=== PATIENT | male | born 1945 | race Caucasian/White ===

== ENCOUNTER 2025-03-06 10:00 | Outpatient (REF) | payer MEDICARE, SELFPAY ==
--- OUTSIDE RECORDS SUMMARY | 2024-10-08 07:00 | XMS_ITS | Encounter Summary ---
Author Name [facility] Organization [facility] Address [address] [place] [id number] Care Team Providers Care Advertising Dispatch Clerks Supervisor Name Role Phone LUCILA WADE Primary Care Provider Unavailabl e Insurance Providers: All historical and current Section Date Range: From patient's date of to the date document was created. This section includes the names of all active insurance providers for the patient. Insurance Provider Type of Coverage Plan Name Start of Policy Coverage End of Policy Coverage Group Number Member ID Insurance Provider's Telephone Number Policy Fang's Name Patient's Relationship to Policy Fang [facility] [place] M[facility] (WNR) MEDICARE ADVANTAGE MCR ([facility]) December 25, 2011 [id number] CARLA,DA VID PATIENT [employer] [place] [facility] (WNR) MEDICARE ADVANTAGE MCR ([facility]) December 25, 2011 [id number] CARLA,DA VID PATIENT MEDICARE ([facility]) MEDICARE () PART B December 25, 2011 PART B [id number] CARLA,DA VID PATIENT MEDICARE ([facility]) MEDICARE () PART A Apr 26, 2009 PART A [id number] [phone] CARLA,DA VID PATIENT MEDICARE PART D ([facility]) MEDICARE () PART D December 25, 2011 PART D [id number] JORGE AGUIRRE PATIENT MEDICARE PART D (WNR) PRESCRIPT ION PART D December 25, 2011 PART D [id number] JORGE AGUIRRE PATIENT Selected Encounter This section includes the information on record at [facility] for the Encounter. Date/Time Encounter Type Encounter Description Reason Provider Source Oct 08, 2024 11:00 AM OFFICE O/P EST HI 40 MIN PRIMARY CARE/MEDICINE ICD-10-CM I48.0 Paroxysmal atrial fibrillation NELIDA BRICENO Encounter Template Text not used by [facility] Assessments - Encounter Diagnoses This section includes the primary and secondary diagnoses documented for the Encounter. Date/Time Primary/Secondary Diagnosis Diagnosis Name Provider Source Oct 08, 2024 12:03 PM PRIMARY Paroxysmal atrial fibrillation NELIDA BRICENO Oct 08, 2024 12:03 PM SECONDARY Heart failure, unspecified NELIDA BRICENO Oct 08, 2024 12:03 PM SECONDARY Type 2 diabetes mellitus without complications NELIDA BRICENO Plan of Treatment: Future Appointments (+ 6 months) and Future Tests (+/- 45 days) The Plan of Treatment section includes future care activities for the patient from all [facility] treatmentfacilities. This section includes future appointments and future orders which are active, pending or scheduled. Future Appointments This section includes appointments that were scheduled to occur 6 months from the date of the Encounter, up to a maximum of 20 appointments. The data comes from all [place] treatment facilities. Appointment Date/Time Appointment Type Appointme nt Facility Name Nov 24, 2024 12:00 PM AMBULATORY PSYCHIATRY [facility] Dec 11, 2024 09:00 AM AMBULATORY PSYCHIATRY [facility] January 05, 2025 11:00 AM AMBULATORY PSYCHIATRY [facility] January 05, 2025 03:00 PM AMBULATORY PSYCHIATRY [facility] January 12, 2025 09:00 AM AMBULATORY PSYCHIATRY [facility] Feb 09, 2025 09:30 AM AMBULATORY PSYCHIATRY [facility] Feb 22, 2025 10:00 AM AMBULATORY - MEDICINE [facility] Mar 16, 2025 09:30 AM AMBULATORY PSYCHIATRY [facility] Lab Results: +/- 30 days of the encounter This section includes the Chemistry and Hematology Lab Results on record with [facility] for the patient. Radiology Reports and Pathology Reports are provided separately, in subsequent sections. Lab Results This section contains the Chemistry/Hematology Results that were resulted 30 days before or 30 daysafter the date of the Encounter. Date/Time Source Result Type Result - Unit Interpretation Reference Range Specimen Type Comment Oct 08, 2024 02:21 PM [facility] MICROALBUMIN CREATININE RATIO PANEL URINE Specimen Type: URINE No comment entered. Ordering Provider: NELIDA BRICENO Report Released Date/Time: Oct 08, 2024 11:53 AM Reporting [facility] [address] [address] Performing Lab: [facility] [address] [address] MICROALBUMIN/CREATININE RATIO 8.5 mg/g 0 -29.9 MICROALBUMIN,QUANTITATIVE 0.8 mg/dL RR U NAVAIL CREATININE URINE 94.27 mg/dL Oct 08, 2024 01:45 PM [facility] PT & INR (COUMADIN) PLASMA Specimen Ty pe: PLASMA No comment entered. Ordering Provider: NELIDA BRICENO Report Released Date/Time: Oct 08, 2024 11:33 AM Reporting Lab: [facility] [address] Performing Lab: [facility] [address] INR 2.2 PROTIME 23.5 s H 10.0-13.1 Oct 08, 2024 01:45 PM [facility] CBC BLOOD Sp ecimen Type: BLOOD No comment entered. Ordering Provider: NELIDA BRICENO Report Released Date/Time: Oct 08, 2024 11:33 AM Reporting Lab: [facility] [phone] Performing Lab: [facility] [phone] WBC 10.16 10*3/uL 4.50-11.00 RBC 4.70 10*6/uL 4.23-5.66 HGB 14.3 g/dL 12.8-17 HCT 43.4 39.2-50.4 MCV 92.3 fL 82-99 MCHC 32.9 g/dL 30.8-35.1 PLT 252 10*3/uL 140-360 RDW-CV 12.7 12.0-16.0 MCH 30.4 pg 26.2-32.6 Oct 08, 2024 01:45 PM [facility] CREATININE (eGFR 2020) SERUM Specimen Type: SERUM No comment entered. Ordering Provider: NELIDA BRICENO Report Released Date/Time: Oct 08, 2024 11:33 AM Reporting Lab: [address] [phone] Performing Lab: [address] [address] CREATININE, Serum 0.96 mg/dL 0.50-1.40 eGFR(CKD-EPI 2020) 79 mL/min >60 Oct 08, 2024 01:45 PM [facility] LIVER FUNCTION SERUM Specimen Type: SERUM No comment entered. Ordering Provider: NELIDA BRICENO Report Released Date/Time: Oct 08, 2024 11:33 AM Reporting Lab: [address] [address] Performing Lab: [address] [address] PROTEIN,TOTAL 6.9 g/dL 6.0-8.3 ALBUMIN 4.0 g/dL 3.5-5.0 ALKALINE PHOSPHATASE 80 U/L 40-150 AST 24 U/L 5-34 ALT 27 U/L BILIRUBIN, TOTAL 0.4 mg/dL 0.2-1.2 Vital Signs: All taken on the encounter date This section contains inpatient and outpatient Vital Signs collected on the date of the Encounter. Date/Time Temperature Pulse Blood Pressure Respiratory Rate SP02 Pain Height Weight Body Mass Index Source Oct 08, 2024 11:14 AM 97.5 80 119/81 18 95 70 196 28 [facility] Advance Directives: All historical and current Section Date Range: From patient's date of to the date document was created. This section includes ALL of a patient's completed or amended [place] Advance and Rescinded Directives. The entries below indicate that a directive exists for the patient, but an actual copy is not included with this document. The data comes from all [place] facilities. Date Advance Directives Provider Source Sep 18, 2024 ADVANCE DIRECTIVE TATI SAINI Encounter Notes: All associated encounter notes This section contains the clinical notes associated to the Encounter. Date/Time Encounter Note(s) Provider Source Oct 08, 2024 11:17 AM PREVENTIVE MEDICIN E NURSING NOTE: LOCAL TITLE: CLINICAL REMINDERS/NURSING STANDARD TITLE: PREVENTIVE MEDICINE NURSING NOTE DATE OF NOTE: OCT 08, 2024@11:17 ENTRY DATE: OCT 08, 2024@11:17:09 AUTHOR: BRUNILDA BA EXP COSIGNER: URGENCY: STATUS: COMPLETED Pneumococcal Conjugate Vaccine (PCV15/PCV20): The patient may have been vaccinated in the past but written documentation of vaccination is not available today. Patient instructed to obtain a written record of the prior vaccine and bring it to the next appointment. Influenza Immunization: Deferral / Refusal The patient declines to receive the recommended dose of seasonal influenza vaccine. Immunization: INFLUENZA, UNSPECIFIED FORMULATION Refusal Reason: PATIENT DECISION Patient refuses all immunization(s) in the FLU group Date Documented: 10/08/24 11:17 Herpes Zoster (Shingles) Vaccine: The patient declines to receive the recommended dose of zoster (shingles) vaccine. Immunization: ZOSTER RECOMBINANT Refusal Reason: PATIENT DECISION Patient refuses all immunization(s) in the ZOSTER group Date Documented: 10/08/24 11:18 Sexual Orientation: The patient thinks of their sexual orientation as: Reminder deferred for this visit. Tdap Immunization: The patient may have been vaccinated in the past but written documentation of vaccination is not available today. Patient instructed to obtain a written record of the prior vaccine and bring it to the next appointment. Eye Care At-Risk Screen : Patient identified to be at risk for the following eye condition(s): DIABETIC RETINOPATHY: Diabetes Diagnosis Information: Problem Diagnosis: 10/08/2024 [id number] (SNOMED CT) Type 2 diabetes mellitus Date Entered: 07/31/2019; Date Last Modified: 10/08/2024 Status: ACTIVE; Priority: UNDEFINED Prov. Narr. - Type 2 diabetes mellitus Action: No Referral Ordered: The patient declined/refused referral for Tele-Eye screening and Eye Clinic appointment. Comment: Its been a few years, offerd [facility] [employer] phone # RHS Screen: RHS Screen Environmental Check Screening was not completed at this time due to: Another adult present. Rsv vaccine not avaible at this time. /ghulam/ BRUNILDA BA LPN LICENSED PRACTICAL NURSE Signed: 10/08/2024 11:21 BRUNILDA BA [facility] Oct 08, 2024 09:45 AM PHYSICIAN EDILMA [place] NOTE: LOCAL TITLE: PA NOTE STANDARD TITLE: PHYSICIAN MANAGER QUALITY IMPROVEMENT NOTE DATE OF NOTE: OCT 08, 2024@09:45 ENTRY DATE: OCT 08, 2024@09:45:13 AUTHOR: NELIDA BRICENO COSIGNER: URGENCY: STATUS: COMPLETED PA NOTE Has ADDENDA S - 79 y/o M Allergy: NKAM MEDS: see below CC: new pt to me initial eval HPI: see Problem List PMH: neg CAD/AMI +A Fib 9and intermit flutter) neg HTN ?? TAA +VIRGINIE (no need for cpap) neg PVD or PAD neg COPD neg Asthma neg Hepatic Disorders +Tenorio's neg Renal Disorders neg CVA/TIA neg Seizures neg Chronic Coagulopathy neg PUD, UGI Bleed neg Anemia, Excess Bleeding, Easy Bruising neg Blood Transfusions +DM neg Thyroid Disorders +BPH any Signif Infectious Diseases? No like TB/HIV/HEP B or C neg OA never CA of any kind PSH: see Problem list ROS: denies fever, night sweats denies unintended changes WT/appetite denies new fatigue denies new chest pain denies new dyspnea/SOB denies new mental staus changes (or TIA Sx) denies ABD pain denies N/V/D denies chronic or bloody diarrhea denies (chronic) constipation denies LUTS denies melena, hematochezia denies new skin lesions or rashes FH: non-contributory Mil Hx: [employer], [place] 1964- 1967 MOS - Missle [employer] - No WIA - Never TBI - No [place]: retired; was self-employed and owned own business SH: O - coop A&Ox3 NAD W-N/H/D VS: Stable HEENT: Eyes - PERRL, anicteric OU Ears - EAC clear AU TM clear AU Oropharynx - no petechiae, uvula midline NECK: no adeno no bruits PUL: Resp full, reg, unlabored; CTA B/L COR: RRR, no M ABD: no distention no bruits no tenderness no mass/megaly RECTAL: defer EXT: no LLE or calf tenderness FEET: no cutaneous lesions dist neuro vascu intact INTEG: NL texture/turgor NAILS: no clubbing no spooning LABS: not done yet A/P - 1) Hypertension - 120/82 2) C/V Stable - never KS 3) A FIB - HR 100 Bouts of Flutter as Well 4) 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) - on Xarelto, 20 MG/day (Anti-Coag Consult Done) NOT ON ASA - on Metoprol SUCC, 100 MG/day - on Disopyramide 100 MG/TID (Non-Form Consult Done) - still sees [facility] Regularly (at [facility]) as of OCT 20 - Third Ablation Planned NOV 17 via Private Card[facility] 5) Neuro Stable - never CVA/TIA 6) Hypercholesterolemia - on Lipitor, 20 MG/day 7) DM II - Outside A1C's Average in the 6's - on Metformin XR (500 MG/Once Day) - foot, eye care - diet, wt 6) VIRGINIE (just snores) - no need for CPAP 6) Coagulopathy - No 7) Fall Risk: No 8) BPH (nocturia x 2) - on Flomax 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 YES: The patient has been taking medications as documented in the EMLR. Essential Medication List for Review used to complete this medication reconciliation. INCLUDED IN THIS LIST: Alphabetical list of active outpatient prescriptions dispensed from this [facility] (local) and dispensed from another [facility] or DoD facility (remote) as well as inpatient orders (local, pending and active), local clinic medications, locally documented non-VA medications, and local prescriptions that have or been discontinued in the past 90 days. - All changes in medications, including all non-VA/Herbal/OTC medications were entered into CPRS. Changes: nt - If there were any medications the patient should no longer take, they were discontinued. - The patient/caregiver was instructed to update this list, discard old lists, and take this list to the next appointment, whether with a VA or non-VA provider. PAVE Foot Check: A complete foot check was completed at this encounter. VISUAL INSPECTION: Includes inspection for skin breaks, deformity, erythema, trauma, pallor on elevation, dependent rubor, nail deformities, extensive callus and pitting edema. Visual exam results: Normal Comment: nt PEDAL PULSES: Includes palpation of dorsalis and posterior tibial pulses and signs/symptoms of vascular compromise like pain, pallor, parasthesia or paralysis. Present (even if diminished) Comment: nt SENSORY CHECK: Includes 10 gram Monofilament (Austin-Deana) test of sensation. Intact (Greater than or equal to 80% of sites checked) Abnormal (Less than 80% of sites checked): Intact Comment: nt LOW-RISK: LOW RISK INFORMATION PROVIDED: 1. Advised patient not to walk barefoot. 2. Explained the importance of daily foot checks for changes. 3. Stressed the importance of daily foot hygiene, including bathing and complete drying. Hemoglobin A1C: [place] had HBA1C result from another health care site (results required). Date: July, ? Exact date is unknown Location: Outside Healthcare Provider Results: approx month; 6.2 Eye Care At-Risk Eval (Provider) : Patient identified to be at risk for the following eye condition(s): DIABETIC RETINOPATHY: Diabetes Diagnosis Information: Problem Diagnosis: 10/08/2024 [id number] (SNOMED CT) Type 2 diabetes mellitus Date Entered: 07/31/2019; Date Last Modified: 10/08/2024 Status: ACTIVE; Priority: UNDEFINED Prov. Narr. - Type 2 diabetes mellitus Provider educated patient on potential risk of permanent vision loss and recommendation to obtain eye care assessment. Patient verbalized understanding and No Referral Ordered: Eye exam completed elsewhere by an [employer] Ticket Checker or Supervisor Dry Cell Assembly Diabetic retinal exam result: Negative for Retinopathy Date: July, ? Exact date is unknown Location: Outside Healthcare Provider Comment: appro,month; sees Ophth via [facility] in [place] Diabetes: Kidney Health Evaluation: Last eGFR: EGFR No data available for: eGFR(CKD-EPI 2020) eGFR Last uACR: No uACR found within the past year eGFR and uACR (estimated Glomerular Filtration Rate and Urine Albumin-Creatinine Ratio)* Serum or plasma creatinine, quantitative urine creatinine and quantitative urine albumin lab tests were ordered. /ghulam/ NELIDA BRICENO PA-C STAFF PHYSICIAN MANAGER QUALITY IMPROVEMENT Signed: 10/08/2024 12:03 10/08/2024 ADDENDUM STATUS: UNSIGNED You may not VIEW this UNSIGNED Addendum. NELIDA BRICENO
--- NOTE | ~2025-03-06 | CT_ITS ---
CLINICAL HISTORY: MILD COGNITIVE IMPAREMENT CT of the head without intravenous contrast Comparison: None Findings: The ventricles and sulci are prominent, consistent with generalized cerebral parenchymal volume loss. The ventricles are symmetric and the basilar cisterns are intact. Mild periventricular, deep and subcortical white matter hypodensities are nonspecific but statistically reflect the sequela of chronic small vessel ischemic change. No intracranial hemorrhage, extra-axial fluid collection, midline shift or mass-effect is evident. No evidence of acute large vessel or territorial ischemia. Brainstem and cerebellum unremarkable. Vascular calcifications indicate intracranial atherosclerosis. The imaged portion of the paranasal sinuses are clear. No mastoid effusions are demonstrated. The orbital contents are unremarkable. Calvarium is intact. Impression: 1. No CT evidence of acute intracranial abnormality. 2. Cerebral volume loss, intracranial atherosclerotic disease and mild sequela of chronic small vessel ischemic disease. This document has been electronically signed by: Abrahan Masterson MD on 03/08/2025 10:04:44
--- OUTSIDE RECORDS SUMMARY | 2025-03-06 10:05 | XMS_ITS ---
Author Name [facility] Organization Unknown Care Team Organization Name Specialty Phone Email Start Date End Da te [facility] 09/17/2023
--- OUTSIDE RECORDS SUMMARY | 2025-03-06 10:06 | XMS_ITS | Clinical Summary ---
Author Organization [address] [facility] Address [address] [place] [address] Phone Care Team Providers Care Commercial Producer Name Role Phone Rickie Bautista MD Primary Care Provider Medications rivaroxaban (Xarelto) 20 mg tablet Take 20 mg by mouth daily. 01/10/20 24 Active atorvastatin (LIPITOR) 20 mg tablet Take 1 tablet (20 mg total) by mouth 1 (one) time each day. 90 tablet 1 10/23/19 25 Active omeprazole (PriLOSEC) [address] capsule Take 1 capsule (20 mg total) by mouth 1 (one) time each day. 90 capsule 1 10/23/19 25 Active tamsulosin (FLOMAX) 0.4 mg 24 hr capsule Take 2 capsules (0.8 mg total) by mouth at bedtime. Active traZODone (DESYREL) 50 mg tablet Take 1 tablet (50 mg total) by mouth at bedtime. 30 tablet 2 12/11/19 25 Active LORazepam (ATIVAN) 0.5 mg tablet Take 1 tablet (0.5 mg total) by mouth 1 (one) time each day if needed for anxiety (iNSOMNIA). Not more than 1 tablet/day Max Daily Amount: 0.5 mg 14 tablet 12/31/19 25 Active metFORMIN (GLUCOPHAGE) 500 mg tablet Take 1 tablet (500 mg total) by mouth 1 (one) time each day with breakfast. Active metoprolol succinate (TOPROL-XL) 100 mg 24 hr tablet Take 1 tablet (100 mg total) by mouth 1 (one) time each day. Do not crush or chew. Active mirtazapine (REMERON) 7.5 mg tablet Take 1 tablet (7.5 mg total) by mouth at bedtime. 90 each 1 01/15/20 Active amiodarone (PACERONE) 200 mg tablet Take 1 tablet (200 mg total) by mouth 1 (one) time each day. 90 each 01/30/20 Active rOPINIRole (REQUIP) 0.5 mg tablet Take 1 tablet (0.5 mg total) by mouth at bedtime. 90 each 02/06/20 Active rOPINIRole (REQUIP) 0.25 mg tablet Take 1 tablet (0.25 mg total) by mouth See administration instructions. 1 tab at night for the first one week then 2 tab at night 53 each 01/14/20 25 2024 Discontinued Active Problems Problem Noted Date Diagnosed Date Restless leg syndrome 01/13/2025 Insomnia 12/10/2024 Cognitive impairment 12/10/2024 Anxiety and depression 12/10/2024 Migraine without aura and wi thout status migrainosus, not intractable 12/10/2024 Bradycardia 12/10/2024 Thoracic aortic aneurysm (TAA) ([facility] V24) 07/2024 Typical atrial flutter ([facility] V24, CMS/HCC V28 ) 08/06/2024 ICD (implantable cardioverter-defibrillator) in place 08/06/2024 Overview (08/06/2024): Biotronik single-chamber device placed in 2017 for primary prevention. RV lead with A sense capability. 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 Euvolemic on exam. Not requiring any diuretic. But does follow a low-sodium diet. 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 Date 11/18/2017. SE 64 % SM 72 %; spent 14 % of the study in REM. CPAP @ 16 -> RDI 1.6 (AHI 1.6), Central apneas 2; Obstructive apneas 0; Mixed apneas 0; hypopneas 0; RERAs 0; and, average oxygen saturation was 95%. For the entire study, PLMs ~53. Hypertrophic cardiomegaly 07/27/2016 Overview (07/10/2024): HOCM with septal thickness of 14 to 15 mm currently on negative inotropes with metoprolol and disopyramide. Resting heart rate in the [address] b[address] range[address] ICD in place. Last Assessment & Plan: Doing well in general with no signs of outflow tract obstruction. No ventricular arrhythmias and no atrial arrhythmias. Tolerating negative inotropic agents well. Echocardiogram last done in late 2022. No need to repeat this year. Will continue his healthy lifestyle and negative inotropic medications. Persistent atrial fibrillation (CMS/HCC V24, CMS /HCC V28) 04/27/2015 Overview (08/06/2024): Stage 3D Persistent atrial fibrillation: Briefly on amiodarone with ECV. Pulmonary vein isolation in March 2018 and has had minimal atrial fibrillation since. He did have an episode in 2018 that required a cardioversion and he went back on Xarelto. He has a second ablation in August 2019 -confirmed isolation of all 4 pulmonary veins, linear left atrial ablation with posterior wall isolation and mitral and septal isthmus lines completed. Persistent AF 08/14/2021 at midnight, pt aware of elevated HR but no significant SOB, decline in activity tolerance - event questionably precipitated by shoveling heavy snow, in setting of HCM will continue to pursue rhythm control. ECV - resumed Norpace. 07/2024 - recurrence of Aflutter - scheduled for ablation 09/2024 Colon polyp 03/01/2014 Overview (07/10/2024): Tubular adenoma Sleep disorder 12/21/2013 Ptosis of both eyelids 01/27/2013 Mixed hyperlipidemia 02/13/2012 Overview (07/10/2024): Last Assessment & Plan: Excellent lipid profile on atorvastatin. We talked about taking Co-Q10 which she asked about and I thought would be fine. Continue healthy diet Encounters Date Type Department Care Team Description 02/22/2025 4:30 PM EDT Ancillary Procedure [facility] [address] [facility] [address] [place] [address] 01/13/2025 10:00 AM EDT Office Visit Adult [address] [phone] Rickie Bautista MD Numbness of feet (Primary Dx); Restless leg syndrome; Insomnia, unspecified type; Anxiety and depression; Prediabetes 01/12/2025 Nurse Triage [address] [phone] Rickie Bautista MD 01/07/2025 4:00 PM EDT Office Visit [address] [phone] Virgil Britt PA Mid back pain (Primary Dx); Skin lesion 01/07/2025 Telephone Adult [address] [phone] Rickie Bautista MD Referral 01/07/2025 Telephone Adult [address] [phone] Rickie Bautista MD 12/31/2024 9:45 AM EDT Ancillary Procedure [facility]iology [facility] [address] [place] [address] 12/31/2024 Telephone [facility] [address] [place] [address] Shira Dong NP 12/10/2024 11:30 AM EDT Office Visit Adult Medicine [address] [address] Rickie Bautista MD Insomnia, unspecified type (Primary Dx); Anxiety and depression; Cognitive impairment; Migraine without aura and without status migrainosus, not intractable; Prediabetes; Bradycardia; Persistent atrial fibrillation (CMS/HCC V24, CMS/HCC V28) 12/09/2024 1:40 PM EDT Office Visit [facility] Cardiology [facility] [address] [place] [address] Shira Dong NP Persistent atrial fibrillation (CMS/HCC V24, CMS/HCC V28) (Primary Dx); Hypertrophic cardiomegaly from Last 3 Months Immunizations Name Administration Dates Next Due Influenza trivalent, 0.5mL ( Fluad) 65yo and older 06/08/2020,05/20/2019,05/13/2017 Influenza trivalent, 0.5mL, preservative free (Fluarix; FluLaval; Fluzone) ages 6mo and older (Afluria) 3 years and older 05/30/2015,05/15/2013,07/02/2012 Pneumococcal polysaccharide 23 valent (Pneumovax 23) 2yo and older 06/08/2010 Td Tetanus diptheria (Tdvax) 7yo and older 08/26 Zoster Live 12/19/2011 Surgical History Surgery Date Site/Laterality Comments CARDIAC DEFIBRILLATOR PLACEMENT PROCEDURE:CARDIAC DEFIBRILLATOR PLACEMENT OTHER SURGICAL HISTORY PROCEDURE: SHOULDER ARTHROSCOPY, DIAGNOSTIC; COMMENT: times 3, 2 on the right one on the left OTHER SURGICAL HISTORY 08/30/19 17 PROCEDURE: INSERTION SUBCUTANEOUS DEFIBRILLATOR ELECTRODE; COMMENT: Implantation of a single-chamber implantable cardoverter defibrillator under fluoroscopic guidance. ESOPHAGOGASTRODUODENOSCOPY 06/19/20 PROCEDURE: OK ESOPHAGOGASTRODUODENOSCOPY TRANSORAL DIAGNOSTIC; COMMENT: Short segment Tenorio's disease, small hiatal hernia repeat 3 years for surveillance ABLATION DONE ON 10/14/2024 AT [facility] CARDIOVERSION DONE ON 11/13/2024 AT [facility] W AOP INDICATIONS:Atrial fibrillation Medical History Medical History Date Comments Heart disease DX:Heart disease Cardiac pacemaker DX:Cardiac pac emaker Family history of valvular h eart disease DX:Family history of valvula r heart disease; COMMENT: brother with HOCM, pt had full workup in [place], negative Other and unspecified hyperlipidemia DX:Other and unspecified hyperlipidemia Idiopathic hypertrophic suba ortic stenosis (CMS/HCC V24, CMS/HCC V28) DX:Idiopathic hype rtrophic subaortic stenosis (HCC) Erectile dysfunction DX:Erectile dysfunction Elevated prostate specific a ntigen (PSA) DX:Elevated prostate specifi c antigen (PSA) DM (diabetes mellitus), type 2 with peripheral vascular complications (CMS/HCC V24, CMS/HCC V28) 01/25/2015 DX:DM (diabetes mellitus), type 2 with peripheral vascular complications (HCC) Insomnia 01/27/2013 DX:Insomnia Short-segment Tenorio's esophagus 06/26/2021 DX:Short-segment Tenorio's esophagus Hiatal hernia 06/26/2021 DX:Hiatal hernia Family History Medical History Relation Name Comments Heart disease Brother 1 CABG Father Heart disease Father CABG Mother Heart disease Mother Relation Name Status Comments Brother 1 Brother 2 (Age 45) [place] -- card iomyopathy Daughter Alive times 3, health y Father (Age 92) old age Maternal Grandfather Maternal Grandmother Mother (Age 88) Paternal Grandfather Paternal Grandmother Social History Tobacco Use Types Packs/Day Years Used Date Smoking Tobacco: Former Cigarettes Q uit: 08/26/1988 Smokeless Tobacco: Never Tobacco Cessation:Counseling Given: Not Answered Alcohol Use Standard Drinks/Week Comments Not Currently 1.7 (1 standard drink = 0.6 oz p ure alcohol) Housing Instability Answer Date Recorde d Are you worried that in the next 2 months you may not have stable housing? No 12/09/2024 Food Access & Nutrition Answer Date Rec orded Do you have access to a vari ety of food including fruits and vegetables? Yes 12/09/2024 Access to Healthcare Answer Date Record ed Within the last 3 months, ho w many times did you visit the emergency department for your medical care? 1 12/09/2024 Financial Risk Answer Date Recorded How hard is it for you to pa y for the very basics like food, housing, medical care, and air conditioning / heating? Not very hard 12/09/2024 Transportation Answer Date Recorded Has the lack of transportati on kept you from meetings, work, or from getting things needed for daily living? Not on file 12/09/2024 Has the lack of transportati on kept you from medical appointments or from getting medications? No 12/09/2024 Social Isolation Answer Date Recorded How often do you feel lonely or isolated from those around you? Sometimes 12/09/2024 Food Risk Answer Date Recorded Within the past 12 months we worried whether our food would run out before we got money to buy more. Never true 12/09/2024 Within the past 12 months th e food we bought just didn't last and we didn't have money to get more. Never true 12/09/2024 Dependent Care Answer Date Recorded Do you need help finding or paying for care for your loved ones. For example, early childhood special educator or elderly care for an older adult? No 12/09/2024 Education Answer Date Recorded Do you think completing more education or training, like finishing a GED, going to college, or learning a trade, would be helpful for you? No 12/09/2024 Employment and Income Answer Date Recor ded During the last four weeks, have you been actively looking for work? No 12/09/2024 Living Situation Answer Date Recorded What is your living situation? 0 12/09/2024 Sex and Gender Information Value Date Recorded Sex Assigned at Male 10/13/2024 8:19 AM EST Legal Sex Male 4:01 PM EST Gender Identity Male 10/13/2024 8:19 AM EST Sexual Orientation Straight 10/13/2024 8: 19 AM EST Obstetrics History Last Filed Vital Signs Vital Sign Reading Time Taken Comments Blood Pressure 138/72 01/13/2025 10:05 AM EDT Pulse 62 01/13/2025 10:05 AM EDT Temperature 36.4 C (97.6 F) 01/13/2025 10:05 AM EDT Respiratory Rate 14 01/13/2025 10:05 AM EDT Oxygen Saturation 98% 01/13/2025 10:05 AM EDT Inhaled Oxygen Concentration - - Weight 83.5 kg (184 lb) 01/13/2025 10:05 AM EDT Height 177.8 cm (5' 10 ) 01/13/2025 10:05 AM EDT Body Mass Index 26.4 01/13/2025 10:05 AM EDT Plan of Treatment Upcoming Encounters Date Type Department Care Team (Late st Contact Info) Description 03/25/2025 2:00 PM EDT Office Visit Gastroenterology - [place] [address] [place] [address] Mercedes Giles PA [address] [place] [address] 06/03/2025 10:30 AM EDT Ancillary Procedure [facility] [address] [place] [address] 06/07/2025 1:30 PM EDT Ancillary Procedure [facility] [address] [place] [address] Health Maintenance Due Date Last Done Comments Diabetes: Annual Foot Exam 1955 Pneumococcal Vaccine: 50+ Years (2 of 2 - PCV) 06/08/2011 06/08/2010 Zoster Vaccines (2 of 3) 02/13/2012 12/19/2011 RSV Immunization Adult Patients (1 - 1-dose 75+ series) 2019 DTaP,Tdap,and Td Vaccines (2 - Td or Tdap) 08/26/2021 08/26/2011 Medicare Annual Wellness Visit 08/04/2022 COVID-19 Vaccine (2 - season) 2024 12/01/2020 Diabetes: Annual Retina Eye Exam 12/15/2024 12/16/2023 Diabetes: Annual Urine Albumin-Creatinine Ratio (uACR) 02/09/2025 02/10/2024 Influenza Vaccine (#1) 2025 , 05/20/2019, 04/26/2019, Additional history exists Diabetes: Blood Sugar Control Test (HGBA1C) 05/12/2025 11/09/2024, 06/10/2024, 06/10/2024, Additional history exists Diabetes: Annual GFR (Glomerular Filtration Rate) 11/09/2025 11/09/2024, 10/13/2024, 02/10/2024, Additional history exists Hypertension/CHF/CAD Annual BMP Blood Test 11/09/2025 11/09/2024, 10/13/2024, 02/10/2024, Additional history exists Social Influencers of Health Screening 12/09/2025 12/09/2024 Depression Screening 12/10/2025 12/10/2024 Falls Risk Assessment 12/10/2025 12/10/2024 Cholesterol Screening (Lipid Panel) 02/09/2029 02/10/2024, 02/10/2024 HIB Vaccines Aged Out No longer eligi ble based on patient's age to complete this topic HPV Vaccines Aged Out No longer eligi ble based on patient's age to complete this topic Hepatitis A Vaccines Aged Out No long er eligible based on patient's age to complete this topic Hepatitis B Vaccines Aged Out No long er eligible based on patient's age to complete this topic IPV Vaccines Aged Out No longer eligi ble based on patient's age to complete this topic MMR Vaccines Aged Out No longer eligi ble based on patient's age to complete this topic Meningococcal ACWY Vaccine Aged Out N o longer eligible based on patient's age to complete this topic Meningococcal B Vaccine Aged Out No l onger eligible based on patient's age to complete this topic RSV Immunization Patients Under 20 months Aged Out No longer eligible based on patient's age to complete this topic Varicella Vaccines Aged Out No longer eligible based on patient's age to complete this topic Medical Devices Implanted Type Area Director Of Land Device Identifier Shelf Expiration Date Model / Serial / Lot Device Clsbeatriz Thomasde Mvp 6-12f Fem Art - [id number] - [id number] Implanted:Qty: 2 on 10/14/2024 by Laz Santacruz MD at [facility] Vascular Closure Devices N/A: Groin [employer]- [employer]ARD[employer]A MED ITEMS 06/11/2026 [id number] / [id number] / Plug Fem Artery Closure Vascade Mvp Collagen Ster - [id number] - [id number] Implanted:Qty: 1 on 10/14/2024 by Laz Santacruz MD at [facility] Vascular Grafts N/A: Groin [employer]- [employer] MED ITEMS [id number] 06/17/2026 [id number] / [id number] / Procedures Procedure Name Priority Date/Time Associated Diagnosis Comments CARDIAC DEVICE CHECK- REMOTE- MURJ Routine 02/22/2025 4:29 PM EDT VITAMIN B12 Routine 01/15/2025 3:21 PM EDT Numbness of feet IRON AND TIBC Routine 01/15/2025 3:21 PM EDT Restless leg syndrome POC GLUCOSE Routine 01/13/2025 10:14 AM EDT Prediabetes CARDIAC DEVICE CHECK- REMOTE- MURJ Routine 12/31/2024 9:41 AM EDT ECG 12-LEAD Routine 12/09/2024 3:54 PM EDT Persistent atrial fibrillation (CMS/HCC V24, CMS/HCC V28) COMPREHENSIVE METABOLIC PANEL Routine 11/09/2024 10:06 AM EDT Persistent atrial fibrillation (CMS/HCC V24, CMS/HCC V28) HEMOGLOBIN A1C Routine 11/09/2024 10:06 AM EDT Prediabetes URINE ALBUMIN CREATININE RATIO Routine 02/10/2024 LIPID PANEL Routine 02/10/2024 DIABETES EYE EXAM Routine 12/16/2023 from Last 3 Months or Most Recently Relevant to Health Maintenance Results * Cardiac device check - Remote- MURJ (02/22/2025 4:29 PM EDT) Only the most recent of2 resultswithin the time period is included. Date Time Interrogation Session [id number] CV DEVICE CHECK Type Interrogation Session RemoteScheduled CV DEVICE CHECK Implantable Pulse Generator Director Of Land BIO CV DEVICE CHECK Implantable Pulse Generator Type ICD CV DEVICE CHECK Implantable Pulse Generator Model Iperia 7 VR-T DX CV DEVICE CHECK Implantable Pulse Generator Serial Number [id number] CV DEVICE CHECK Implantable Pulse Generator Implant Date [id number] CV DEVICE CHECK Battery Remaining Percentage 17.00 CV DEVICE CHECK Battery Voltage 2.960 CV D EVICE CHECK Battery JEWELRY JOBBER Trigger 2.850 CV DEVICE CHECK Battery Status Middle of Service CV DEVICE CHECK Capacitor Charge Time 12.300 CV DEVICE CHECK Valeriy Statistic RV Percent Paced 0.00 CV DEVICE CHECK Atrial Tachy Statistic AT/AF [place] Percent 0.00 CV DEVICE CHECK Lead Channel Sensing Intrinsic Amplitude 1.400 CV DEVICE CHECK Lead Channel Setting Sensing Sensitivity 1.00 CV DEVICE CHECK Lead Channel RA Pacing Threshold Date 2025-02-17 CV DEVICE CHECK Lead Channel Sensing Intrinsic Amplitude 15.000 CV DEVICE CHECK Lead Channel Setting Sensing Sensitivity 0.80 CV DEVICE CHECK Lead Channel Impedance Value 476 CV DEVICE CHECK Lead Channel RV Pacing Threshold Date 2025-02-17 CV DEVICE CHECK Lead Channel Setting Pacing Amplitude 2.500 CV DEVICE CHECK Lead Channel Setting Pacing Pulse Width 0.5 CV DEVICE CHECK Valeriy Setting Mode (NBG Code) VVI CV DEVICE CHECK Valeriy Setting Lower Rate Limit 40 CV DEVICE CHECK Therapy Statistic Recent Shocks Delivered 0 CV DEVICE CHECK Therapy Statistic Recent Shocks Aborted 0 CV DEVICE CHECK Therapy Statistic Recent ATP Delivered 0 CV DEVICE CHECK Shock Measured Impedance 77 CV DEVICE CHECK Zone Setting Type Category Zone_ATAF CV DEVICE CHECK Rate 140 CV DEVICE CHECK Zone Setting Status Monitor CV DEVICE CHECK Zone ID 7 CV DEVICE CHECK Zone Setting Type Category VF CV DEVICE CHECK Rate 200 CV DEVICE CHECK Therapies Burst,40.0J,40.0J, 40.0J x 6 CV DEVICE CHECK Zone Setting Status On CV DEVICE CHECK Zone ID 8 CV DEVICE CHECK Zone Setting Type Category VT CV DEVICE CHECK Rate 150 CV DEVICE CHECK Zone Setting Status Monitor CV DEVICE CHECK Zone ID 9 CV DEVICE CHECK Zone Setting Type Category VT CV DEVICE CHECK Zone Setting Status Inactive CV DEVICE CHECK Zone ID 10 CV DEVICE CHECK Date of Service 2025-03-02 CV DEVICE CHECK Anatomical Region Laterality Modality Device Interroga tion 02/17/2025 2:46 AM EDT Impressions 02/22/2025 7:37 AM EDT Normal Remote: No Events * Normal Device Function * Alerts or events: None * Battery: Battery is at 17%, * Sensing, impedance and thresholds reviewed * Programmed parameters reviewed * Presenting rhythm reviewed * Heart Rate Histograms reviewed * No significant changes noted Heart Failure Diagnostic: Stable * Heart failure diagnostics assessed through the device * Status: Stable * No overt HF present Narrative Procedure Note Laz Santacruz MD - 02/22/2025 IMPRESSION: Normal Remote: No Events * Normal Device Function * Alerts or events: None * Battery: Battery is at 17%, * Sensing, impedance and thresholds reviewed * Programmed parameters reviewed * Presenting rhythm reviewed * Heart Rate Histograms reviewed * No significant changes noted Heart Failure Diagnostic: Stable * Heart failure diagnostics assessed through the device * Status: Stable * No overt HF present us Laz Santacruz MD CV IMPLANTABLE CARDIAC DEVICE PROCEDURES Final Result * (ABNORMAL) Iron and TIBC (01/15/2025 3:21 PM EDT) Iron 65 50 - 160 mcg/dL LAB CHEMISTRY METHOD 01/15/2025 6:02 PM EDT [facility] TIBC 349 250 - 450 mcg/dL LAB CHEMISTRY METHOD 01/15/2025 6:02 PM EDT [facility] Iron Saturation 19(L) 20 - 50 % LAB CHEMISTRY METHOD 01/15/2025 6:02 PM EDT [facility] Blood Venous blood specimen / Unknown Venipuncture / Unknown 01/15/2025 3:21 PM EDT 01/15/2025 3:24 PM EDT us Rickie Bautista MD LAB BLOOD ORDERABLES Final Result [facility] [address] [place] [address], [place] [phone] * (ABNORMAL) Vitamin B12 (01/15/2025 3:21 PM EDT) [facility] Vitamin B-12 972(H) 250 - 900 pcg/mL LAB CHEMISTRY METHOD 01/15/2025 6:24 PM EDT [facility] Blood Venous blood specimen / Unknown Venipuncture / Unknown 01/15/2025 3:21 PM EDT 01/15/2025 3:24 PM EDT us Rickie Bautista MD LAB BLOOD ORDERABLES Final Result [facility] [address] [place] [address], [place] [phone] * (ABNORMAL) POC glucose manually resulted (01/13/2025 10:14 AM EDT) [facility] Glucose POC 115(A) 70 - 110 mg/dL Blood Capillary blood specimen / Unknown 01/13/2025 10:14 AM EDT us Rickie Bautista MD POINT OF CARE TEST ENTER/ED IT ORDERABLES Final Result * ECG 12 lead (12/09/2024 3:54 PM EDT) [facility] Ventricular Rate ECG 43 BPM GEMUSE Atrial Rate 43 BPM GEMUSE P-R Interval 198 ms GEMUSE QRS Duration 146 ms GEMUSE Q-T Interval 560 ms GEMUSE QTc 473 ms GEMUSE P Wave [place] 29 degrees GEMUSE R [place] 0 degrees GEMUSE T [place] 113 degrees GEMUSE ECG Interpretation Marked sinus bradycardia Left bundle branch block STTWA unchanged Confirmed by ASHUTOSH HILL ([id number]) on 12/13/2024 2:40:52 PM GEMUSE 12/09/2024 1:30 PM EDT 12/13/2024 2:40 PM EDT us Shira Dong NP ECG ORDERABLES Edited Resul t - Final GEMUSE * Hemoglobin A1c (11/09/2024 10:06 AM EDT) Pathologist [facility] Hemoglobin A1C 6.0 <6.5 % LAB CHEMISTRY METHOD 11/09/2024 2:15 PM EDT [facility] Mean Bld Glu Estim. 126 mg/dL LAB CHEMISTRY METHOD 11/09/2024 2:15 PM EDT [facility] Blood Venous blood specimen / Unknown Venipuncture / Unknown 11/09/2024 10:06 AM EDT 11/09/2024 10:06 AM EDT Rickie Bautista MD LAB BLOOD ORDERABLES Final Result Performing Organization Address [facility]/ZIP Co de Phone Number [facility] [address] [place] [address], * (ABNORMAL) Comprehensive metabolic panel (11/09/2024 10:06 AM EDT) [facility] Sodium 139 133 - 145 mmol/L LAB CHEMISTRY METHOD 11/09/2024 1:13 PM EDT [facility] Potassium 3.8 3.5 - 5.5 mmol/L LAB CHEMISTRY METHOD 11/09/2024 1:13 PM EDT [facility] Chloride 105 96 - 110 mmol/L LAB CHEMISTRY METHOD 11/09/2024 1:13 PM EDT [facility] CO2 28 21 - 32 mmol/L LAB CHEMISTRY METHOD 11/09/2024 1:13 PM EDT [facility] Anion Gap 6 3 - 11 LAB CHEMISTRY METHOD 11/09/2024 1:13 PM EDT [facility] Glucose 154(H) 70 - 100 mg/dL LAB CHEMISTRY METHOD 11/09/2024 1:13 PM EDT [facility] BUN 16 5 - 25 mg/dL LAB CHEMISTRY METHOD 11/09/2024 1:13 PM [facility] Creatinine 1.14 0.70 - 1.30 mg/dL LAB CHEMISTRY METHOD 11/09/2024 1:13 PM [facility] eGFR 65 >=60 mL/min/1. 73m2 LAB CHEMISTRY METHOD 11/09/2024 1:13 PM [facility] LAB Comment:Calculation based on the Chronic Kidney Disease Epidemiology Collaboration (CKD-EPI) equation refit without adjustment for race. BUN/Creatinine Ratio 14.0 LAB CHEMISTRY METHOD 11/09/2024 1:13 PM [facility] Calcium 9.7 8.5 - 10.5 mg/dL LAB CHEMISTRY METHOD 11/09/2024 1:13 PM [facility] AST (SGOT) 20 10 - 42 unit/L LAB CHEMISTRY METHOD 11/09/2024 1:13 PM [facility] ALT (SGPT) 33 10 - 60 unit/L LAB CHEMISTRY METHOD 11/09/2024 1:13 PM [facility] Alkaline Phosphatase 82 42 - 121 unit/L LAB CHEMISTRY METHOD 11/09/2024 1:13 PM [facility] Total Protein 7.1 6.0 - 8.0 g/dL LAB CHEMISTRY METHOD 11/09/2024 1:13 PM [facility] Albumin 4.0 3.2 - 5.0 g/dL LAB CHEMISTRY METHOD 11/09/2024 1:13 PM [facility] Total Bilirubin 0.9 0.0 - 1.4 mg/dL LAB CHEMISTRY METHOD 11/09/2024 1:13 PM [facility] Blood Venous blood specimen / Unknown Venipuncture / Unknown 11/09/2024 10:06 AM EDT 11/09/2024 10:06 AM EDT Shira Dong DATABASE DESIGN ANALYST LAB BLOOD ORDERABLES Final R esult [facility] [address] [place] [address], * HM Urine Albumin Creatinine Ratio (02/10/2024) Urine Albumin Creatinine Ratio abstracted Historical Provider HEALTH MAINTENANCE Final Result * Lipid panel (02/10/2024) Pathologist [facility] LDL/HDL Ratio 3 0 - 4 Triglycerides 94 0 - 150 mg/dL Cholesterol 112 0 - 200 mg/dL HDL 44 >=40 mg/dL LDL Cholesterol 50 0 - 100 mg/dL Blood Venous blood specimen / Unknown Historical Provider LAB BLOOD ORDERABLES Isabela l Result * Diabetes Eye Exam (12/16/2023) Pathologist [facility] Diabetes: Annual Retina Eye Exam abstracted Historical Provider HEALTH MAINTENANCE Final Result from Last 3 Months or Most Recently Relevant to [place] [id number] [employer] [id number] [place] [address] Advance Directives Documents on File Type Date Recorded Patient Paper Tube Machine Operator Expl anation Power of Senior Medical Billing Specialist 11/13/2024 11:38 AM [facility] PROXY * Full Code - Confirmed (Latest Code Status on File) Date Activated Date Inactivated Comments 11/09/2024 9:41 AM This code stat us was ascertained in the following way: Code status discussion: discussion with patient To update the patient's code status, place a code status order. Do not modify or discontinue any currently active code status orders. * Full Code - Default Date Activated Date Inactivated Comments 10/14/2024 8:20 AM 10/15/2024 4:50 AM This is orde r is used when code status has not been discussed with the patient, or code status is otherwise unknown/unconfirmed To update the patient's code status, place a code status order. Do not modify or discontinue any currently active code status orders. Care Teams Commercial Producer Relationship Specialty Start Date End Date Rickie Bautista MD [address] [place] [address] PCP - General Internal Medicine 12/29/21
--- OUTSIDE RECORDS SUMMARY | 2025-03-06 10:06 | XMS_ITS | Clinical Summary ---
Author Organization [facility] Address [address] [place] [address] Care Team Providers Care Asphalt Mixer Name Role Phone Rickie Bautista MD Primary Care Provider [phone] Allergies No known active allergies Medications Medication Sig Dispensed Refills Start Date End Date Status atorvastatin (LIPITOR) tablet 20 mg TAKE 1/2 TABLET BY MOUTH DAILY. 3 11/18/2018 Active disopyramide (NORPACE) 100 MG capsule Take 1 capsule (100 mg total) by mouth 3 (three) times a day. 3 09/11/2018 Active METOPROLOL TARTRATE PO Take 100 mg by mouth daily. 0 Active sildenafil (VIAGRA) 100 MG tablet Take 1 tablet (100 mg total) by mouth daily as needed. 0 Active rivaroxaban (XARELTO) 20 MG TABS tablet Take 1 tablet (20 mg total) by mouth every evening. 0 Active omeprazole (PriLOSEC) 20 MG capsule Take 1 capsule (20 mg total) by mouth daily. 0 Active tamsulosin (FLOMAX) 0.4 MG CAPS Take 1 capsule (0.4 mg total) by mouth daily. 0 Active metFORMIN (GLUCOPHAGE) tablet 500 mg Take 1 tablet (500 mg total) by mouth daily. 0 Active Active Problems Problem Noted Date Diagnosed Date Olecranon bursitis of right elbow 12/17/2018 Family History Medical History Relation Name Comments Heart disease Brother Heart disease Father Heart disease Mother Relation Name Status Comments Brother Father Mother Social History Tobacco Use Types Packs/Day Years Used Date Smoking Tobacco: Former Cigarettes Q uit: 1988 Smokeless Tobacco: Never Alcohol Use Standard Drinks/Week Comments No 0 (1 standard drink = 0.6 oz pur e alcohol) Sex and Gender Information Value Date Recorded Sex Assigned at Not on file Gender Identity Not on file Sexual Orientation Not on file Job Start Date Occupation Industry Not on file Not on file Not on file Last Filed Vital Signs Vital Sign Reading Time Taken Comments Blood Pressure - - Pulse - - Temperature - - Respiratory Rate - - Oxygen Saturation - - Inhaled Oxygen Concentration - - Weight 96.2 kg (212 lb) 12/17/2018 10:00 AM EDT Height 176.5 cm (5' 9.5 ) 12/17/2018 10:00 AM ED T Body Mass Index 30.86 12/17/2018 10:00 AM EDT Plan of Treatment Health Maintenance Due Date Last Done Comments Depression Screening 1956 Preventative Health Evaluation 1962 DTap / Tdap / Td (1 - Tdap) 1963 Shingrix-Zoster Vaccine (1 of 2) 1994 Fall Risk Assessment 2009 Pneumococcal Vaccine (2 of 2 - PCV) 06/08/2011 06/08/2010 RSV Adult > 60+ Yrs or (1 - 1-dose 75+ series) 2019 COVID-19 Vaccine (2 - season) 2024 12/01/2020 Influenza Vaccine (#1) 2025 , 05/20/2019, 04/26/2019, Additional history exists Hepatitis B Vaccines Aged Out No long er eligible based on patient's age to complete this topic RSV Ped < 20 months Aged Out No longe r eligible based on patient's age to complete this topic Care Teams Asphalt Mixer Relationship Specialty Start Date End Date Rickie Bautista MD [address] [place] [id number] PCP - General Hospitalist Medicine 09/18/23
== END 2025-03-06 10:01 | disposition home or self-care (01) ==
LOC: HO.CT 10:00
PROVIDERS: Visit Provider Internal Medicine
DX: G31.84 Mild cognitive impairment of uncertain or unknown etiology (principal)
CPT/HCPCS: 70450

== ENCOUNTER → 2025-03-06 10:17 | Outpatient (BNV) | payer MEDICARE, SELFPAY | PROVIDERS: Visit Provider Radiology Diagnostic Radiology | DX: G31.89 Other specified degenerative diseases of nervous system (principal); I67.2 Cerebral atherosclerosis | CPT/HCPCS: 70450 ==

== ENCOUNTER 2025-03-11 15:58 | Outpatient (AMB) | payer OTHER, SELFPAY ==
--- NOTE | 2025-03-11 16:09 | A.OFFVIS_ITS ---
Intake Visit Reasons: review CT scan Allergies No Known Allergies Allergy (Verified 03/09/25 10:19) Medication List - Last Reconciled 03/11/25 by Yakelin Yo MD atorvastatin 20 mg PO DAILY disopyramide phosphate 100 mg PO TID metformin ER 500 mg PO QAM metoprolol tartrate 25 mg PO BID PRN omeprazole 20 mg PO DAILY rivaroxaban (Xarelto) 20 mg PO DAILY sertraline 25 mg PO DAILY tamsulosin 0.8 mg PO QPM HPI Comments Details: 79 yo man with mild cognitive impiarment. (Initial seen in December of 2024: With atrial fibb, s/p defibrillator placement, was here for difficulty sleeping since October of 2024. His in Jun. He was also having issues with his prostate. He was waking up frequently but not usually to urinate. Memory was not good. Mood was not good. He did not have any pain. Appetite was good. Bowel function was good. He was unsteady and was shaking in his hands.) [facility] Medical History (Updated 03/11/25 @ 16:18 by Yakelin Yo MD) HLD (hyperlipidemia) Pre-diabetes A-fib Insomnia MCI (mild cognitive impairment) Migraine with aura Physical Exam Neuro Other: Mental Status: Alert and oriented to person, place, and time. Normal attention. Normal spontaneous speech, fluency, and comprehension. Is mini-mental status score today was 26. [place] was 23. Cranial Nerves: CN II: Visual ruiz full to confrontation, visual acuity intact. CN III, IV, : Pupils equal, round, reactive to light and accommodation. Extraocular movements are normal. CN V: Facial sensation is normal. CN VII: Facial movements symmetrical. CN VIII: Hearing intact to bedside conversation is normal. CN IX, X: Palate elevates symmetrically. CN XI: Shoulder shrug and head turn symmetrical. CN XII: Tongue midline without atrophy or fasciculations. Deep tendon reflexes are absent with mild diffuse atrophy in his legs and feet and some trophic skin changes. Plantars are flexor. Vibration sensation is decreased in feet. Extrapyramidal: Full facial expressions and blinking. No rigidity. Movements are appropriate with no tremor or abnormality. Speech: Normal; no dysarthria or tremor. Assessment & Plan Assessment & Plan (1) MCI (mild cognitive impairment): Comment[place] [facility] [place] WNL Code(s): G31.84 - Mild cognitive impairment of uncertain or unknown etiology Category: Medical (2) Peripheral neuropathy: Code(s): G62.9 - Polyneuropathy, unspecified Category: Medical Qualifiers: Peripheral neuropathy type: polyneuropathy, unspecified Qualified Code(s): G62.9 - Polyneuropathy, unspecified Plan Impression: a: Mild cognitive impairment with no significant abnormality on head CT. There is fair possiblity of Alzheimer disease b: Peripheral neuropathy with prediabetic condition Rec: 1. Neuropsychological eval 2. Abeta/tau serum test for cerebral amyloid 3. EMG/NCS to classify and grade neuropathy 4. B12 and TSH level Orders: Orders NE nerve conduction velocity Today G62.9 - Polyneuropathy, unspecified NE electromyogram (EMG) Today G62.9 - Polyneuropathy, unspecified Vitamin B12 and Folate Today G31.84 - Mild cognitive impairment of uncertain or unknown etiology Thyroid Stimulating Hormone Today G31.84 - Mild cognitive impairment of uncertain or unknown etiology ABeta 42/40 p-tau 217 Eval Today G31.84 - Mild cognitive impairment of uncertain or unknown etiology Referrals Neuropsychiatry Referral G31.84 - Mild cognitive impairment of uncertain or unknown etiology Coding Level of Care Code Tele Est Pt Level 4 (36775) Diagnoses MCI (mild cognitive impairment) G31.84 Peripheral polyneuropathy G62.9 Peripheral neuropathy type: polyneuropathy, unspecified
--- OUTSIDE RECORDS SUMMARY | 2025-03-11 16:20 | XMS_ITS | Clinical Summary ---
Author Organization [facility] Address [address] [place] [address] Care Team Providers Care Cutting And Boning Supervisor Name Role Phone Rickie Bautista MD Primary Care Provider [phone]- [phone] Allergies No known active allergies Medications Medication [...] age to complete this topic Care Teams Cutting And Boning Supervisor Relationship Specialty Start Date End Date Rickie Bautista MD [address] [place] [id number] PCP - General Hospitalist Medicine 09/18/23
--- OUTSIDE RECORDS SUMMARY | 2025-03-11 16:20 | XMS_ITS | Clinical Summary ---
Author Organization [address] [facility] Address [address] [place] [address] Phone Care Team Providers Care Assistant Professor Of Radiology Name Role Phone Rickie Bautista MD Primary Care Provider Medications rivaroxaban (Xarelto) 20 mg tablet Take 20 mg by mouth daily. 01/10/2024 Active atorvastatin (LIPITOR) 20 mg tablet Take 1 tablet (20 mg total) by mouth 1 (one) time each day. 90 tablet 1 10/23/2024 Active omeprazole (PriLOSEC) [address] capsule Take 1 capsule (20 mg total) by mouth 1 (one) time each day. 90 capsule 1 10/23/2024 Active tamsulosin (FLOMAX) 0.4 mg 24 hr capsule Take 2 capsules (0.8 mg total) by mouth at bedtime. Active traZODone (DESYREL) 50 mg tablet Take 1 tablet (50 mg total) by mouth at bedtime. 30 tablet 2 12/10/2024 Active LORazepam (ATIVAN) 0.5 mg tablet Take 1 tablet (0.5 mg total) by mouth 1 (one) time each day if needed for anxiety (iNSOMNIA). Not more than 1 tablet/day Max Daily Amount: 0.5 mg 14 tablet 12/30/2024 Active metFORMIN (GLUCOPHAGE) 500 mg tablet Take [...] by mouth at bedtime. 90 each 1 01/14/2025 Active amiodarone (PACERONE) 200 mg tablet Take 1 tablet (200 mg total) by mouth 1 (one) time each day. 90 each 1 01/29/2025 Active rOPINIRole (REQUIP) 0.5 mg tablet Take 1 tablet (0.5 mg total) by mouth at bedtime. 90 each 1 02/05/2025 Active Active Problems Problem Noted Date Diagnosed Date Restless leg syndrome 01/13/2025 Insomnia 12/10/2024 Cognitive impairment 12/10/2024 Anxiety and depression 12/10/2024 Migraine without aura and wi thout status migrainosus, not intractable 12/10/2024 Bradycardia 12/10/2024 Thoracic aortic aneurysm (TAA) ([facility] V24) 07/2024 Typical atrial flutter ([facility] V24, [facility] V28 ) 08/06/2024 ICD (implantable cardioverter-defibrillator) in place 08/06/2024 Overview (08/06/2024): Biotronik single-chamber device placed in 2017 for primary prevention. RV lead with A sense capability. Flutter-fibrillation ([facility] V24, [facility] V28) 08/06/2024 Gastroesophageal reflux disease without esophagi tis 06/26/2024 Chronic diastolic congestive heart failure ([facility] V24, [facility] V28) 06/19/2023 Overview (07/10/2024): Last Assessment & [...] Description 02/22/2025 4:30 PM EDT Ancillary Procedure [facility] [address] [place] [address] 02/17/2025 Telephone [facility] [address] [place] [address] Rickie Bautista MD Medical Records 01/13/2025 10:00 AM EDT Office Visit [address] [phone] Rickie Bautista MD Numbness of feet (Primary Dx); Restless leg syndrome; Insomnia, unspecified type; Anxiety and depression; Prediabetes 01/12/2025 Nurse Triage [address] [phone] Rickie Bautista MD 01/07/2025 4:00 PM EDT Office Visit [address] [phone] Virgil Britt PA Mid back pain (Primary Dx); Skin lesion 01/07/2025 Telephone Adult [address] [phone] Rickie Bautista MD Referral 01/07/2025 Telephone Adult [address] [phone] Rickie Bautista MD 12/31/2024 9:45 AM EDT Ancillary Procedure [facility] [address] [place] [address] 12/31/2024 Telephone [facility] [address] [place] [address] Shira Dong NP 12/10/2024 11:30 AM EDT Office Visit Adult Medicine [address] [phone] Rickie Bautista MD Insomnia, unspecified type (Primary Dx); Anxiety and depression; Cognitive impairment; Migraine without aura and without status migrainosus, not intractable; Prediabetes; Bradycardia; Persistent atrial fibrillation (CMS/HCC V24, CMS/HCC V28) from Last 3 Months Immunizations Name Administration [...] on the left OTHER SURGICAL HISTORY 08/30/19 PROCEDURE: INSERTION SUBCUTANEOUS DEFIBRILLATOR ELECTRODE; COMMENT: Implantation of a single-chamber implantable cardoverter defibrillator under fluoroscopic guidance. ESOPHAGOGASTRODUODENOSCOPY 06/19/20 PROCEDURE: LA ESOPHAGOGASTRODUODENOSCOPY TRANSORAL DIAGNOSTIC; COMMENT: Short segment Tenorio's disease, small hiatal hernia repeat 3 years for surveillance ABLATION DONE ON 10/14/2024 AT [facility] CARDIOVERSION DONE ON 11/13/2024 AT [facility] W AOP INDICATIONS:Atrial fibrillation Medical History Medical History Date Comments Heart disease DX:Heart disease Cardiac pacemaker DX:Cardiac pac emaker Family history of valvular h eart disease DX:Family history of valvula r heart disease; COMMENT: brother with HOCM, pt had full workup in [place], negative Other and unspecified hyperlipidemia DX:Other and [...] Comments Brother 1 Brother 2 (Age 45) [place] -- card iomyopathy Daughter Alive times 3, [...] care for your loved ones. For example, children's tutor or elderly care for an older adult? [...] 2:00 PM EDT Office Visit [facility] - [place] [address] [place] [phone] Mercedes Giles PA [address] [place] [address] 06/03/2025 10:30 AM EDT Ancillary Procedure [facility] [address] [facility] [address] [place] [id number] 06/07/2025 1:30 PM EDT Ancillary Procedure [facility] [address] [place] [address] Health Maintenance Due Date Last Done Comments [...] Social Influencers of Health Screening 12/09/2025 12/09/2024 Falls Risk Assessment 12/10/2025 12/10/2024 Cholesterol Screening (Lipid Panel) 02/09/2029 02/10/2024, 02/10/2024 Depression Screening Completed 12/10/2024 HIB Vaccines Aged Out No longer eligi [...] this topic Medical Devices Implanted Type Area Electrical Prospecting Engineer Device Identifier Shelf Expiration Date Model / Serial / Lot Device Clsur Vascade Mvp 6-12f Fem Art - [id number] - [id number] Implanted:Qty: 2 on 10/14/2024 by Laz Santacruz MD at [facility] Vascular Closure Devices N/A: Groin [employer]- [employer]ARDIVA MED ITEMS 06/11/2026 [id number] / [id number] / Plug Fem Artery Closure Vascade Mvp Collagen Ster - [id number] - [id number] Implanted:Qty: 1 on 10/14/2024 by Laz Santacruz MD at [facility] Vascular Grafts N/A: Groin [employer]- [employer] ITEMS [id number] 06/17/2026 [id number] / [id number] / Procedures Procedure Name Priority Date/Time Associated Diagnosis Comments CARDIAC DEVICE CHECK- REMOTE- MURJ Routine 02/22/2025 4:29 PM EDT VITAMIN B12 Routine 01/15/2025 3:21 PM EDT Numbness of feet IRON AND TIBC Routine 01/15/2025 3:21 PM EDT Restless leg syndrome POC GLUCOSE Routine 01/13/2025 10:14 AM EDT Prediabetes CARDIAC DEVICE CHECK- REMOTE- MURJ Routine 12/31/2024 9:41 AM EDT COMPREHENSIVE METABOLIC PANEL Routine 11/09/2024 10:06 AM [...] period is included. Date Time Interrogation Session [id number] CV DEVICE CHECK Type Interrogation Session RemoteScheduled CV DEVICE CHECK Implantable Pulse Generator Electrical Prospecting Engineer BIO CV DEVICE CHECK Implantable Pulse Generator Type ICD CV DEVICE CHECK Implantable Pulse Generator Model Iperia 7 VR-T DX CV DEVICE CHECK Implantable Pulse Generator Serial Number [id number] CV DEVICE CHECK Implantable Pulse Generator Implant Date [id number] CV DEVICE CHECK Battery Remaining Percentage 17.00 CV DEVICE CHECK Battery Voltage 2.960 CV D EVICE CHECK Battery SPRING SETTER Trigger 2.850 CV DEVICE CHECK Battery Status Middle of Service CV DEVICE CHECK Capacitor Charge Time 12.300 CV DEVICE CHECK Valeriy Statistic RV Percent Paced 0.00 CV DEVICE CHECK Atrial Tachy Statistic AT/AF Gibson Percent 0.00 CV DEVICE CHECK Lead Channel [...] Status: Stable * No overt HF present Laz Santacruz MD CV IMPLANTABLE CARDIAC DEVICE PROCEDURES Final Result * (ABNORMAL) Iron and TIBC (01/15/2025 3:21 PM EDT) Iron 65 50 - 160 mcg/dL LAB CHEMISTRY METHOD 01/15/2025 6:02 PM EDT [facility] TIBC 349 250 - 450 mcg/dL LAB CHEMISTRY METHOD 01/15/2025 6:02 PM EDT [facility] Iron Saturation 19(L) 20 - 50 % LAB CHEMISTRY METHOD 01/15/2025 6:02 PM EDT [facility] Blood Venous blood specimen / Unknown Venipuncture / Unknown 01/15/2025 3:21 PM EDT 01/15/2025 3:24 PM EDT Rickie Bautista MD LAB BLOOD ORDERABLES Final Result [facility] [address] [place] [address], * (ABNORMAL) Vitamin B12 (01/15/2025 3:21 PM EDT) Vitamin B-12 972(H) 250 - 900 pcg/mL LAB CHEMISTRY METHOD 01/15/2025 6:24 PM EDT [facility] Blood Venous blood specimen / Unknown Venipuncture / Unknown 01/15/2025 3:21 PM EDT 01/15/2025 3:24 PM EDT us Rickie Bautista MD LAB BLOOD ORDERABLES Final Result Performing Organization Address City/[facility]/ZIP Co de Phone Number [facility] [address] [place] [address], [place] [phone] * (ABNORMAL) POC glucose manually resulted (01/13/2025 10:14 AM EDT) Pathologist [facility] [place] Glucose POC 115(A) 70 - 110 mg/dL Blood Capillary blood specimen / Unknown 01/13/2025 10:14 AM EDT us Rickie Bautista MD POINT OF CARE TEST ENTER/ED IT ORDERABLES Final Result * Hemoglobin A1c (11/09/2024 10:06 AM EDT) [facility] Hemoglobin A1C 6.0 <6.5 % LAB CHEMISTRY METHOD 11/09/2024 2:15 PM EDT [facility] Mean Bld Glu Estim. 126 mg/dL LAB CHEMISTRY METHOD 11/09/2024 2:15 PM EDT [facility] Blood Venous blood specimen / Unknown Venipuncture / Unknown 11/09/2024 10:06 AM EDT 11/09/2024 10:06 AM EDT us Rickie Bautista MD LAB BLOOD ORDERABLES Final Result Performing Organization Address City/[facility]/ZIP Co de Phone Number [facility] [address] [place] [address], [place] [phone] * (ABNORMAL) Comprehensive metabolic panel (11/09/2024 10:06 AM EDT) [facility] Sodium 139 133 - 145 mmol/L LAB CHEMISTRY METHOD 11/09/2024 1:13 PM EDT [facility] Potassium 3.8 3.5 - 5.5 mmol/L LAB CHEMISTRY METHOD 11/09/2024 1:13 PM [facility] Chloride 105 96 - 110 mmol/L LAB CHEMISTRY METHOD 11/09/2024 1:13 PM [facility] CO2 28 21 - 32 mmol/L LAB CHEMISTRY METHOD 11/09/2024 1:13 PM [facility] Anion Gap 6 3 - 11 LAB CHEMISTRY METHOD 11/09/2024 1:13 PM [facility] Glucose 154(H) 70 - 100 mg/dL LAB CHEMISTRY METHOD 11/09/2024 1:13 PM [facility] BUN 16 5 - 25 mg/dL LAB CHEMISTRY METHOD 11/09/2024 1:13 PM [facility] Creatinine 1.14 0.70 - 1.30 mg/dL LAB CHEMISTRY METHOD 11/09/2024 1:13 PM [facility] eGFR 65 >=60 mL/min/1. 73m2 LAB CHEMISTRY METHOD 11/09/2024 1:13 PM [facility] Comment:Calculation based on the Chronic Kidney Disease Epidemiology Collaboration (CKD-EPI) equation refit without adjustment for race. BUN/Creatinine Ratio 14.0 LAB CHEMISTRY METHOD 11/09/2024 1:13 PM [facility] Calcium 9.7 8.5 - 10.5 mg/dL LAB CHEMISTRY METHOD 11/09/2024 1:13 PM [facility] AST (SGOT) 20 10 - 42 unit/L LAB CHEMISTRY METHOD 11/09/2024 1:13 PM [facility] ALT (SGPT) 33 10 - 60 unit/L LAB CHEMISTRY METHOD 11/09/2024 1:13 PM [facility] Alkaline Phosphatase 82 42 - 121 unit/L LAB CHEMISTRY METHOD 11/09/2024 1:13 PM [facility] Total Protein 7.1 6.0 - 8.0 g/dL LAB CHEMISTRY METHOD 11/09/2024 1:13 PM EDT [facility] Albumin 4.0 3.2 - 5.0 g/dL LAB CHEMISTRY METHOD 11/09/2024 1:13 PM EDT [facility] Total Bilirubin 0.9 0.0 - 1.4 mg/dL LAB CHEMISTRY METHOD 11/09/2024 1:13 PM EDT [facility] Blood Venous blood specimen / Unknown Venipuncture / Unknown 11/09/2024 10:06 AM EDT 11/09/2024 10:06 AM EDT Shira Dong HEAD OF HUMAN RESOURCES LAB BLOOD ORDERABLES Final R esult [facility] [address] [place] [address], * Urine Albumin Creatinine Ratio (02/10/2024) Pathologist [facility] Urine Albumin Creatinine Ratio abstracted Historical Provider HEALTH MAINTENANCE Final Result * Lipid panel (02/10/2024) Pathologist [facility] [place] LDL/HDL Ratio 3 0 - 4 Triglycerides 94 0 - 150 mg/dL Cholesterol 112 0 - 200 mg/dL HDL 44 >=40 mg/dL LDL Cholesterol 50 0 - 100 mg/dL Blood Venous blood specimen / Unknown Historical Provider LAB BLOOD ORDERABLES Isabela l Result * Diabetes Eye Exam (12/16/2023) Pathologist [facility] [place] Diabetes: Annual Retina Eye Exam abstracted Historical Provider HEALTH MAINTENANCE Final Result from Last 3 Months or Most Recently Relevant to Health [place] [id number] [employer] [place] [employer] ADVANTAGE Advance Directives Documents on File Type Date Recorded Patient Director Corporate Sales Expl anation Power of Natural History Collections Curator 11/13/2024 11:38 AM HEAL TH CARE PROXY [...] currently active code status orders. Care Teams Assistant Professor Of Radiology Relationship Specialty Start Date End Date Rickie Bautista MD [address] [place] [address] PCP - General Internal Medicine 12/29/21
--- OUTSIDE RECORDS SUMMARY | 2025-03-11 16:20 | XMS_ITS | Encounter Summary ---
Author Organization [facility] Address [address] [place] [address] Care Team Providers Care Shop Tech Name Role Phone Unavailable Primary Care Provider Unavailabl e Encounter Details Date Type Department Care Team (Latest Contact Info) Description 03/19/2019 Abstract C CONVERSIONS Dental, Provider, DDS Social History Tobacco Use Types Packs/Day Years Used Date Smoking Tobacco: Never Assessed Sex and Gender Information Value Date Recorded Sex Assigned at Male 06/25/2022 10:23 AM EDT Legal Sex Male 10:23 AM EDT Gender Identity Not on file Sexual Orientation Not on file documented as of this encounter Plan of Treatment Not on file documented as of this encounter Visit Diagnoses Not on filedocumented in this encounter
== END 2025-03-11 16:44 | disposition home or self-care (01) ==
LOC: HO.HSM 15:59
PROVIDERS: PCP Internal Medicine; Referring Provider Pediatrics; Visit Provider Psychiatry & Neurology Neurology
DX: G31.84 Mild cognitive impairment of uncertain or unknown etiology (principal); G62.9 Polyneuropathy, unspecified
CPT/HCPCS: 99214

== ENCOUNTER 2025-03-11 15:58 | Outpatient (REF) | payer OTHER, SELFPAY ==
[2025-03-11 17:53] LABS: Thyroid Stimulating Hormone 4.25 uIU/mL (0.32-4.0)
[2025-03-11 18:04] LABS: Folate 7.7 ng/mL (> or = 4.0); Vitamin B12 964 pg/mL (200-900)
[2025-03-22 00:54] LABS: ABETA 42/40 Ratio 0.166 (> OR = 0.170); Alzeheimer's Interpretation Low Likelihood; Alzeimer's Disease Score 0.0843; Tau protein phosphorylated 217 0.12 pg/mL (< OR = 0.15)
== END 2025-03-11 15:59 | disposition home or self-care (01) ==
LOC: HO.LAB 15:58
PROVIDERS: PCP Internal Medicine; Referring Provider Pediatrics; Visit Provider Psychiatry & Neurology Neurology
DX: G31.84 Mild cognitive impairment of uncertain or unknown etiology (principal)
CPT/HCPCS: 36415; 82233; 82234; 82607; 82746; 84393; 84443

== ENCOUNTER 2025-03-25 09:57 | Outpatient (REF) | payer OTHER, SELFPAY ==
--- NOTE | 2025-03-25 10:03 | EMG_ITS ---
Please see the attached neurophysiology report MTDD
--- OUTSIDE RECORDS SUMMARY | 2025-03-25 10:34 | XMS_ITS | Clinical Summary ---
Author Organization [address] [facility] Address [address] [place] [address] Phone Care Team Providers Care Wine Pasteurizer Name Role Phone Rickie Bautista MD Primary [...] 12/10/2024 Bradycardia 12/10/2024 Thoracic aortic aneurysm (TAA) ([facility] V24) 07/2024 Typical atrial flutter ([facility] V24, [facility] V28 ) 08/06/2024 ICD (implantable cardioverter-defibrillator) in place 08/06/2024 Overview (08/06/2024): Biotronik single-chamber device placed in 2017 for primary prevention. RV lead with A sense capability. Flutter-fibrillation ([facility] V24, [facility] V28) 08/06/2024 Gastroesophageal reflux disease without esophagi tis 06/26/2024 Chronic diastolic congestive heart failure ([facility] V24, [facility] V28) 06/19/2023 Overview (07/10/2024): Last Assessment & [...] Description 02/22/2025 4:30 PM EDT Ancillary Procedure [facility] Cardiology [facility] [address] [place] [address] 02/17/2025 Telephone [facility] Cardiology [facility] - [facility] [address] [place] [address] Rickie Bautista MD Medical Records 01/13/2025 10:00 AM EDT Office Visit [address] [phone] Rickie Bautista MD Numbness of feet (Primary Dx); Restless leg syndrome; Insomnia, unspecified type; Anxiety and depression; Prediabetes 01/12/2025 Nurse Triage [address] [phone] Rickie Bautista MD 01/07/2025 4:00 PM EDT Office Visit [address] [phone] Virgil Britt PA Mid back pain (Primary Dx); Skin lesion 01/07/2025 Telephone Adult [address] [phone] Rickie Bautista MD Referral 01/07/2025 Telephone Adult [address] [phone] Rickie Bautista MD 12/31/2024 9:45 AM EDT Ancillary Procedure [facility] Cardiology [facility] - [address] [place] [address] 12/31/2024 Telephone [facility] [address] [place] [address] Shira Dong NP from Last 3 Months Immunizations Name Administration [...] cardoverter defibrillator under fluoroscopic guidance. ESOPHAGOGASTRODUODENOSCOPY 06/19/20 21 PROCEDURE: AR ESOPHAGOGASTRODUODENOSCOPY TRANSORAL DIAGNOSTIC; COMMENT: Short segment Tenorio's disease, small hiatal hernia repeat 3 years for surveillance ABLATION DONE ON 10/14/2024 AT [facility] CARDIOVERSION DONE ON 11/13/2024 AT [facility] W AOP INDICATIONS:Atrial fibrillation Medical History Medical History Date Comments Heart disease DX:Heart disease Cardiac pacemaker DX:Cardiac pac emaker Family history of valvular h eart disease DX:Family history of valvula r heart disease; COMMENT: brother with HOCM, pt had full workup in [place], negative Other and unspecified hyperlipidemia DX:Other and [...] Comments Brother 1 Brother 2 (Age 45) [place] -- card iomyopathy Daughter Alive times 3, [...] Record ed Within the last 3 months, rossi fall many times did you visit the emergency [...] care for your loved ones. For example, childcare director or elderly care for an older adult? [...] 2:00 PM EDT Office Visit [facility] - [place] [address] [place] [address] Mercedes Giles PA [address] [place] [address] 06/03/2025 10:30 AM EDT Ancillary Procedure [facility] Cardiology [facility] - [facility] [address] [facility] [address] [place] [phone] 06/07/2025 1:30 PM EDT Ancillary Procedure [facility] - [facility] [address] [facility] [address] [place] [phone] Health Maintenance Due Date Last Done Comments [...] this topic Medical Devices Implanted Type Area Finish Painter Device Identifier Shelf Expiration Date Model / Serial / Lot Device Clsur Vascade Mvp 6-12f Fem Art - [id number] - [id number] Implanted:Qty: 2 on 10/14/2024 by Laz Santacruz MD at [facility] Vascular Closure Devices N/A: Groin [employer]EM[employer] 06/11/2026 [id number] / [id number] / Plug Fem Artery Closure Vascade Mvp Collagen Ster - [id number] - [id number] Implanted:Qty: 1 on 10/14/2024 by Laz Santacruz MD at [facility] Vascular Grafts N/A: Groin [employer]- [employer] ITEM[employer] [id number] 06/17/2026 [id number] / [id number] / Procedures Procedure Name Priority Date/Time Associated Diagnosis Comments EXTERNAL CLINICAL LAB 03/11/2025 CARDIAC DEVICE CHECK- REMOTE- MURJ Routine 02/22/2025 [...] A1C Routine 11/09/2024 10:06 AM EDT Prediabetes HM URINE ALBUMIN CREATININE RATIO Routine 02/10/2024 LIPID PANEL Routine 02/10/2024 HM DIABETES EYE EXAM Routine 12/16/2023 from Last 3 Months or Most Recently Relevant to Health Maintenance Results * External clinical lab (03/11/2025) Provider [facility] LAB BLOOD ORDERABLES Fin al Result * Cardiac device check - Remote- MURJ (02/22/2025 4:29 PM EDT) Only the most recent of2 resultswithin the time period is included. Date Time Interrogation Session [id number] CV DEVICE CHECK Type Interrogation Session RemoteScheduled CV DEVICE CHECK Implantable Pulse Generator Finish Painter BIO CV DEVICE CHECK Implantable Pulse Generator Type ICD CV DEVICE CHECK Implantable Pulse Generator Model Iperia 7 VR-T DX CV DEVICE CHECK Implantable Pulse Generator Serial Number [id number] CV DEVICE CHECK Implantable Pulse Generator Implant Date 20160830 CV DEVICE CHECK Battery Remaining Percentage 17.00 CV DEVICE CHECK Battery Voltage 2.960 CV D EVICE CHECK Battery CHILD SUPPORT OFFICER Trigger 2.850 CV DEVICE CHECK Battery Status Middle of Service CV DEVICE CHECK Capacitor Charge Time 12.300 CV DEVICE CHECK Valeriy Statistic RV Percent Paced 0.00 CV DEVICE CHECK Atrial Tachy Statistic AT/AF [place] Percent 0.00 CV DEVICE CHECK Lead Channel [...] LAB CHEMISTRY METHOD 01/15/2025 6:02 PM EDT [facility] TIBC 349 250 - 450 mcg/dL LAB CHEMISTRY METHOD 01/15/2025 6:02 PM EDT [facility] Iron Saturation 19(L) 20 - 50 % LAB CHEMISTRY METHOD 01/15/2025 6:02 PM EDT [facility] Blood Venous blood specimen / Unknown Venipuncture / Unknown 01/15/2025 3:21 PM EDT 01/15/2025 3:24 PM EDT Rickie Bautista MD LAB BLOOD ORDERABLES Final Result Performing Organization Address City/[facility]/ZIP Co de Phone Number [facility] [address] [place] [address], [place] [phone] * (ABNORMAL) Vitamin B12 (01/15/2025 3:21 PM EDT) Pathologist [facility] Vitamin B-12 972(H) 250 - 900 pcg/mL LAB CHEMISTRY METHOD 01/15/2025 6:24 PM EDT [facility] Blood Venous blood specimen / Unknown Venipuncture / Unknown 01/15/2025 3:21 PM EDT 01/15/2025 3:24 PM EDT Rickie Bautista MD LAB BLOOD ORDERABLES Final Result [facility] [address] [place] [address], [place] [phone] * (ABNORMAL) POC glucose manually resulted (01/13/2025 10:14 AM EDT) [facility] Glucose POC 115(A) 70 - 110 mg/dL Blood Capillary blood specimen / Unknown 01/13/2025 10:14 AM EDT Rickie Bautista MD POINT OF CARE TEST ENTER/ED IT ORDERABLES Final Result * Hemoglobin A1c (11/09/2024 10:06 AM EDT) [facility] Hemoglobin A1C 6.0 <6.5 % LAB CHEMISTRY METHOD 11/09/2024 2:15 PM EDT [facility] Mean Bld Glu Estim. 126 mg/dL LAB CHEMISTRY METHOD 11/09/2024 2:15 PM EDT [facility] Blood Venous blood specimen / Unknown Venipuncture / Unknown 11/09/2024 10:06 AM EDT 11/09/2024 10:06 AM EDT Rickie Bautista MD LAB BLOOD ORDERABLES Final Result [facility] [address] [place] [address], [place] [phone] * (ABNORMAL) Comprehensive metabolic panel (11/09/2024 10:06 AM EDT) [facility] Sodium 139 133 - 145 mmol/L LAB CHEMISTRY METHOD 11/09/2024 1:13 PM EDT [facility] Potassium 3.8 3.5 - 5.5 mmol/L LAB CHEMISTRY METHOD 11/09/2024 1:13 PM EDT [facility] Chloride 105 96 - 110 mmol/L LAB CHEMISTRY METHOD 11/09/2024 1:13 PM EDT [facility] CO2 28 21 - 32 mmol/L LAB CHEMISTRY METHOD 11/09/2024 1:13 PM [facility] Anion Gap 6 3 - 11 LAB CHEMISTRY METHOD 11/09/2024 1:13 PM [facility] Glucose 154(H) 70 - 100 mg/dL LAB CHEMISTRY METHOD 11/09/2024 1:13 PM [facility] BUN 16 5 - 25 mg/dL LAB CHEMISTRY METHOD 11/09/2024 1:13 PM [facility] Creatinine 1.14 0.70 - 1.30 mg/dL LAB CHEMISTRY METHOD 11/09/2024 1:13 PM [facility] eGFR 65 >=60 mL/min/1. 73m2 LAB CHEMISTRY METHOD 11/09/2024 1:13 PM [facility] Comment:Calculation based on the Chronic Kidney Disease Epidemiology Collaboration (CKD-EPI) equation refit without adjustment for race. BUN/Creatinine Ratio 14.0 LAB CHEMISTRY METHOD 11/09/2024 1:13 PM [facility] Calcium 9.7 8.5 - 10.5 mg/dL LAB CHEMISTRY METHOD 11/09/2024 1:13 PM [facility] AST (SGOT) 20 10 - 42 unit/L LAB CHEMISTRY METHOD 11/09/2024 1:13 PM [facility] ALT (SGPT) 33 10 - 60 unit/L LAB CHEMISTRY METHOD 11/09/2024 1:13 PM [facility] Alkaline Phosphatase 82 42 - 121 unit/L LAB CHEMISTRY METHOD 11/09/2024 1:13 PM [facility] Total Protein 7.1 6.0 - 8.0 g/dL LAB CHEMISTRY METHOD 11/09/2024 1:13 PM [facility] Albumin 4.0 3.2 - 5.0 g/dL LAB CHEMISTRY METHOD 11/09/2024 1:13 PM [facility] Total Bilirubin 0.9 0.0 - 1.4 mg/dL LAB CHEMISTRY METHOD 11/09/2024 1:13 PM EDT [facility] Blood Venous blood specimen / Unknown Venipuncture / Unknown 11/09/2024 10:06 AM EDT 11/09/2024 10:06 AM EDT Shira Dong LAB BLOOD ORDERABLES Final R esult [facility] [address] [place] [address], * Urine Albumin Creatinine Ratio (02/10/2024) Pathologist [facility] Urine Albumin Creatinine Ratio abstracted Historical Provider HEALTH MAINTENANCE Final Result * Lipid panel (02/10/2024) [facility] LDL/HDL Ratio 3 0 - 4 Triglycerides 94 0 - 150 mg/dL Cholesterol 112 0 - 200 mg/dL HDL 44 >=40 mg/dL LDL Cholesterol 50 0 - 100 mg/dL Blood Venous blood specimen / Unknown Historical Provider LAB BLOOD ORDERABLES Isabela l Result * Diabetes Eye Exam (12/16/2023) Pathologist [facility] Diabetes: Annual Retina Eye Exam abstracted Historical Provider HEALTH MAINTENANCE Final Result from Last 3 Months or Most Recently Relevant to Health [place] [id number] [employer] [place] [employer]AGE Advance Directives Documents on File Type Date Recorded Patient Slotter Operator Helper Expl anation Power of Surgeon'S Assistant 11/13/2024 11:38 AM HEAL TH CARE PROXY [...] currently active code status orders. Care Teams Wine Pasteurizer Relationship Specialty Start Date End Date Rickie Bautista MD [address] [place] [address] PCP - General Internal Medicine 12/29/21
--- OUTSIDE RECORDS SUMMARY | 2025-03-25 10:34 | XMS_ITS | Encounter Summary ---
Author Organization [employer] [facility] Address [address] [place] [address] Care Team Providers Care Ob/Gyn Nurse Name Role Phone Unavailable Primary Care Provider [...]
--- OUTSIDE RECORDS SUMMARY | 2025-03-25 10:34 | XMS_ITS | Clinical Summary ---
Author Organization [facility] Address [address] [place] [address] Care Team Providers Care Marine Equipment Engineer Name Role Phone Rickie Bautista MD Primary Care Provider [phone] Allergies No known active allergies Medications Medication [...] age to complete this topic Care Teams Marine Equipment Engineer Relationship Specialty Start Date End Date Rickie Bautista MD [address] [place] [address] PCP - General Hospitalist Medicine 09/18/23
== END 2025-03-25 09:58 | disposition home or self-care (01) ==
LOC: HO.NEURO 09:57
PROVIDERS: PCP Internal Medicine; Visit Provider Psychiatry & Neurology Neurology
DX: G60.8 Other hereditary and idiopathic neuropathies (principal); G62.9 Polyneuropathy, unspecified
CPT/HCPCS: 95886; 95911

== ENCOUNTER → 2025-03-25 10:03 | Outpatient (BNV) | payer OTHER, SELFPAY | PROVIDERS: PCP Internal Medicine; Visit Provider Psychiatry & Neurology Neurology | DX: G62.9 Polyneuropathy, unspecified (principal) | CPT/HCPCS: 95886; 95911 ==

== ENCOUNTER 2025-04-07 09:02 | Outpatient (AMB) | payer OTHER, SELFPAY ==
--- NOTE | 2025-04-07 09:15 | A.OFFVIS_ITS ---
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 [facility] Medical History (Updated 04/07/25 @ 09:16 by Yakelin Yo MD) HLD (hyperlipidemia) Pre-diabetes A-fib Insomnia MCI (mild cognitive impairment) Migraine with aura Review of Systems Const Details: Legs are not bothering him as much. Physical Exam Neuro Other: Mental Status: Alert and oriented to person, place, and time. Normal attention. Normal spontaneous speech, fluency, and comprehension. Cranial Nerves: CN II: Visual ruiz full to confrontation, visual acuity intact. CN III, IV, : Pupils equal, round, reactive to light and accommodation. Extraocular movements are normal. CN V: Facial sensation is normal. CN VII: Facial movements symmetrical. CN VIII: Hearing intact to bedside conversation is normal. CN IX, X: Palate elevates symmetrically. CN XI: Shoulder shrug and head turn symmetrical. CN XII: Tongue midline without atrophy or fasciculations. Extrapyramidal: Full facial expressions and blinking. No rigidity. Movements are appropriate with no tremor or abnormality. Speech: Normal; no dysarthria or tremor. Assessment & Plan Assessment & Plan (1) MCI (mild cognitive impairment): Comment: CT brain WO at [facility] in February 2025: WNL Code(s): G31.84 - Mild cognitive impairment of uncertain or unknown etiology Category: Medical (2) Peripheral neuropathy: Comment: EMG/NCS at [facility] in February 2025: Mild to mod axonal SM PN Code(s): G62.9 - Polyneuropathy, unspecified Category: Medical Qualifiers: Peripheral neuropathy type: polyneuropathy, unspecified Qualified Code(s): G62.9 - Polyneuropathy, unspecified Plan Impression: a: Mild cognitive impairment with low probablily serum test for Alzheimer b: Diabeitc polyneuropathy Rec: a: Stay active b: PRN med for leg discomfort. Presently he is taking ropinorole Coding Level of Care Code Est Pt Level 5 (48912) Diagnoses MCI (mild cognitive impairment) G31.84 Peripheral polyneuropathy G62.9 Peripheral neuropathy type: polyneuropathy, unspecified
--- OUTSIDE RECORDS SUMMARY | 2025-04-07 09:24 | XMS_ITS | Encounter Summary ---
Author Organization [employer] [facility] Address [address] [place] [address] Care Team Providers Care Fleet Manager/Dispatch Name Role Phone Unavailable Primary Care Provider [...]
--- OUTSIDE RECORDS SUMMARY | 2025-04-07 09:24 | XMS_ITS | Clinical Summary ---
Author Organization 175 [facility] Address [address] [place] [address] Phone Care Team Providers Care Ui Lead Developer Name Role Phone Rickie Bautista MD Primary Care Provider Allergies No known active allergies Medications rivaroxaban (Xarelto) 20 mg tablet Take [...] 12/10/2024 Bradycardia 12/10/2024 Thoracic aortic aneurysm (TAA) ([facility] V24) 07/2024 Typical atrial flutter ([facility] V24, [facility] V28 ) 08/06/2024 ICD (implantable cardioverter-defibrillator) in place 08/06/2024 Overview (08/06/2024): Biotronik single-chamber device placed in 2017 for primary prevention. RV lead with A sense capability. Flutter-fibrillation ([facility] V24, [facility] V28) 08/06/2024 Gastroesophageal reflux disease without esophagi tis 06/26/2024 Chronic diastolic congestive heart failure ([facility] V24, CMS/HCC V28) 06/19/2023 Overview (07/10/2024): Last [...] Encounters Date Type Department Care Team Description 03/28/2025 Telephone Gastroenterology [facility] 175 [facility] 175 [facility] [address] [place] [phone] Mercedes Giles PA 03/25/2025 2:00 PM EDT Office Visit Gastroenterology [facility] [address] [facility] [address] [place] [phone] Mercedes Giles PA 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); Gastroesophageal reflux disease with esophagitis without hemorrhage 03/25/2025 Telephone Gastroenterology [facility] 175 [facility] 175 [facility] [address] [place] [phone] Mercedes Giles PA 02/22/2025 4:30 PM EDT Ancillary Procedure [facility] [address] [place] [address] 02/17/2025 Telephone [facility] [address] [place] [address] Rickie Bautista MD Medical Records 01/13/2025 10:00 AM EDT Office Visit [address] [phone] Rickie Bautista MD Numbness of feet (Primary Dx); Restless leg syndrome; Insomnia, unspecified type; Anxiety and depression; Prediabetes 01/12/2025 Nurse Triage Adult [address] [phone] Rickie Bautista MD 01/07/2025 4:00 PM EDT Office Visit Adult Medicine [address] [phone] Virgil Britt PA Mid back pain (Primary Dx); Skin lesion 01/07/2025 Telephone Adult Medicine [address] [phone] Rickie Bautista MD Referral 01/07/2025 Telephone Adult [address] [phone] Rickie Bautista MD from Last 3 Months Immunizations Name Administration [...] under fluoroscopic guidance. ESOPHAGOGASTRODUODENOSCOPY 06/19/20 21 PROCEDURE: [place] ESOPHAGOGASTRODUODENOSCOPY TRANSORAL DIAGNOSTIC; COMMENT: Short segment Tenorio's disease, small hiatal hernia repeat 3 years for surveillance ABLATION DONE ON 10/14/2024 AT [facility] CARDIOVERSION DONE ON 11/13/2024 AT [facility] W AOP INDICATIONS:Atrial fibrillation Medical History Medical History Date Comments Heart disease DX:Heart disease Cardiac pacemaker DX:Cardiac pac emaker Family history of valvular h eart disease DX:Family history of valvula r heart disease; COMMENT: brother with HOCM, pt had full workup in [place], negative Other and unspecified hyperlipidemia DX:Other and [...] Comments Brother 1 Brother 2 (Age 45) [place] -- card iomyopathy Daughter Alive times 3, [...] care for your loved ones. For example, child support officer or elderly care for an older adult? [...] Sign Reading Time Taken Comments Blood Pressure 106/58 03/25/2025 2:16 PM EDT Pulse 57 03/25/2025 2:16 PM EDT Temperature 36.4 C (97.6 F) 01/13/2025 10:05 AM EDT Respiratory Rate 14 01/13/2025 10:05 AM EDT Oxygen Saturation 98% 03/25/2025 2:16 PM EDT Inhaled Oxygen Concentration - - Weight 83.9 kg (185 lb) 03/25/2025 2:16 PM EDT Height 177.8 cm (5' 10 ) 03/25/2025 2:16 PM EDT Body Mass Index 26.54 03/25/2025 2:16 PM EDT Plan of Treatment Upcoming Encounters Date Type Department Care Team (Late st Contact Info) Description 06/03/2025 10:30 AM EDT Ancillary Procedure [facility] [address] [place] [address] 06/07/2025 1:30 PM EDT Ancillary Procedure [facility] [address] [place] [address] 07/07/2025 2:00 PM EST Office Visit Gastroenterology - [place] [address] [place] [phone] Mercedes Giles PA [address] [place] [address] Health Maintenance Due Date Last Done Comments [...] this topic Medical Devices Implanted Type Area Contemporary Or Modern Dancer Device Identifier Shelf Expiration Date Model / Serial / Lot Device Clsur Vascade Mvp 6-12f Fem Art - [id number] - [id number] Implanted:Qty: 2 on 10/14/2024 by Laz Santacruz MD at [facility] Vascular Closure Devices N/A: Groin [employer]- [employer]ARD[employer]A MED ITEMS 06/11/2026 [id number] / [id number] / Plug Fem Artery Closure Vascade Mvp Collagen Ster - [id number] - [id number] Implanted:Qty: 1 on 10/14/2024 by Laz Santacruz MD at [facility] Vascular Grafts N/A: Groin [employer]- [employer] MED ITEMS [id number] 06/17/2026 [id number] / [id number] / Procedures Procedure Name Priority Date/Time Associated Diagnosis Comments CT ABDOMEN PELVIS WO AND W CONTRAST Routine 04/05/2025 1:31 PM EDT EXTERNAL CLINICAL LAB 03/11/2025 EXTERNAL CLINICAL LAB 03/11/2025 CARDIAC DEVICE CHECK- REMOTE- MURJ Routine 02/22/2025 4:29 PM EDT VITAMIN B12 Routine 01/15/2025 3:21 PM EDT Numbness of feet IRON AND TIBC Routine 01/15/2025 3:21 PM EDT Restless leg syndrome POC GLUCOSE Routine 01/13/2025 10:14 AM EDT Prediabetes COMPREHENSIVE METABOLIC PANEL Routine 11/09/2024 10:06 AM EDT Persistent atrial fibrillation (CMS/HCC V24, CMS/HCC V28) HEMOGLOBIN A1C Routine 11/09/2024 10:06 AM EDT Prediabetes HM URINE ALBUMIN CREATININE RATIO Routine 02/10/2024 LIPID PANEL Routine 02/10/2024 DIABETES EYE EXAM Routine 12/16/2023 from Last 3 Months or Most Recently Relevant to Health Maintenance Results * CT Abdomen Pelvis wo and w Contrast (04/05/2025 1:31 PM EDT) Anatomical Region Laterality Modality Body Computed Tomogra phy us Historical Provider MD KHAN CT PROCEDURES Final R esult * External clinical lab (03/11/2025) Only the most recent of2 resultswithin the time period is included. us Provider [facility] LAB BLOOD ORDERABLES Fin al Result * Cardiac device check - Remote- MURJ (02/22/2025 4:29 PM EDT) Date Time Interrogation Session [id number] CV DEVICE CHECK Type Interrogation Session RemoteScheduled CV DEVICE CHECK Implantable Pulse Generator Contemporary Or Modern Dancer BIO CV DEVICE CHECK Implantable Pulse Generator Type ICD CV DEVICE CHECK Implantable Pulse Generator Model Iperia 7 VR-T DX CV DEVICE CHECK Implantable Pulse Generator Serial Number [id number] CV DEVICE CHECK Implantable Pulse Generator Implant Date 20160830 CV DEVICE CHECK Battery Remaining Percentage 17.00 CV DEVICE CHECK Battery Voltage 2.960 CV D EVICE CHECK Battery QA TEST ANALYST Trigger 2.850 CV DEVICE CHECK Battery Status Middle of Service CV DEVICE CHECK Capacitor Charge Time 12.300 CV DEVICE CHECK Valeriy Statistic RV Percent Paced 0.00 CV DEVICE CHECK Atrial Tachy Statistic AT/AF Pyrites Percent 0.00 CV DEVICE CHECK Lead Channel [...] Iron and TIBC (01/15/2025 3:21 PM EDT) Pathologist [facility] Iron 65 50 - 160 mcg/dL LAB CHEMISTRY METHOD 01/15/2025 6:[address] [facility] TIBC 349 250 - 450 mcg/dL LAB CHEMISTRY METHOD 01/15/2025 6:[address] [facility] Iron Saturation 19(L) 20 - 50 % LAB CHEMISTRY METHOD 01/15/2025 6:[address] [facility] Blood Venous blood specimen / Unknown Venipuncture / Unknown 01/15/2025 3:21 PM EDT 01/15/2025 3:24 PM EDT Rickie Bautista MD LAB BLOOD ORDERABLES Final Result [facility] [address] [place] [address], [place] [phone] * (ABNORMAL) Vitamin B12 (01/15/2025 3:21 PM EDT) Vitamin B-12 972(H) 250 - 900 pcg/mL LAB CHEMISTRY METHOD 01/15/2025 6:[address] [facility] Blood Venous blood specimen / Unknown Venipuncture / Unknown 01/15/2025 3:21 PM EDT 01/15/2025 3:24 PM EDT us Rickie Bautista MD LAB BLOOD ORDERABLES Final Result [facility] [address] [place] [address], [place] [phone] * (ABNORMAL) POC glucose manually resulted (01/13/2025 10:14 AM EDT) Glucose POC 115(A) 70 - 110 mg/dL Blood Capillary blood specimen / Unknown 01/13/2025 10:14 AM EDT us Rickie Bautista MD POINT OF CARE TEST ENTER/ED IT ORDERABLES Final Result * Hemoglobin A1c (11/09/2024 10:06 AM EDT) Pathologist [facility] Hemoglobin A1C 6.0 <6.5 % LAB CHEMISTRY METHOD 11/09/2024 2:[address] [facility] Mean Bld Glu Estim. 126 mg/dL LAB CHEMISTRY METHOD 11/09/2024 2:[address] [facility] Blood Venous blood specimen / Unknown Venipuncture / Unknown 11/09/2024 10:06 AM EDT 11/09/2024 10:06 AM EDT us Rickie Bautista MD LAB BLOOD ORDERABLES Final Result [facility] [address] [place] [address], [place] [phone] * (ABNORMAL) Comprehensive metabolic panel (11/09/2024 10:06 AM EDT) Sodium 139 133 - 145 mmol/L LAB CHEMISTRY METHOD 11/09/2024 1:13 PM [facility] Potassium 3.8 3.5 - 5.5 mmol/L LAB CHEMISTRY METHOD 11/09/2024 1:13 PM [facility] Chloride 105 96 - 110 mmol/L LAB CHEMISTRY METHOD 11/09/2024 1:13 PM [facility] CO2 28 21 - 32 mmol/L LAB CHEMISTRY METHOD 11/09/2024 1:13 PM [facility] Anion Gap 6 3 - 11 LAB CHEMISTRY METHOD 11/09/2024 1:13 PM [facility] Glucose 154(H) 70 - 100 mg/dL LAB CHEMISTRY METHOD 11/09/2024 1:13 PM [facility] BUN 16 5 - 25 mg/dL LAB CHEMISTRY METHOD 11/09/2024 1:13 PM [facility] Creatinine 1.14 0.70 - 1.30 mg/dL LAB CHEMISTRY METHOD 11/09/2024 1:13 PM [facility] eGFR 65 >=60 mL/min/1. 73m2 LAB CHEMISTRY METHOD 11/09/2024 1:13 PM [facility] Comment:Calculation based on the Chronic Kidney Disease Epidemiology Collaboration (CKD-EPI) equation refit without adjustment for race. BUN/Creatinine Ratio 14.0 LAB CHEMISTRY METHOD 11/09/2024 1:13 PM [facility] Calcium 9.7 8.5 - 10.5 mg/dL LAB CHEMISTRY METHOD 11/09/2024 1:13 PM [facility] AST (SGOT) 20 10 - 42 unit/L LAB CHEMISTRY METHOD 11/09/2024 1:13 PM [facility] ALT (SGPT) 33 10 - 60 unit/L LAB CHEMISTRY METHOD 11/09/2024 1:[address] [facility] Alkaline Phosphatase 82 42 - 121 unit/L LAB CHEMISTRY METHOD 11/09/2024 1:[address] [facility] Total Protein 7.1 6.0 - 8.0 g/dL LAB CHEMISTRY METHOD 11/09/2024 1:[address] [facility] Albumin 4.0 3.2 - 5.0 g/dL LAB CHEMISTRY METHOD 11/09/2024 1:[address] [facility] Total Bilirubin 0.9 0.0 - 1.4 mg/dL LAB CHEMISTRY METHOD 11/09/2024 1:[address] [facility] Blood Venous blood specimen / Unknown Venipuncture / Unknown 11/09/2024 10:06 AM EDT 11/09/2024 10:06 AM EDT Shira Dong NP LAB BLOOD ORDERABLES Final R esult [facility] [address] [place] [address], * Urine Albumin Creatinine Ratio (02/10/2024) [facility] Urine Albumin Creatinine Ratio abstracted Historical Provider HEALTH MAINTENANCE Final Result * Lipid panel (02/10/2024) [facility] LDL/HDL Ratio 3 0 - 4 Triglycerides 94 0 - 150 mg/dL Cholesterol 112 0 - 200 mg/dL HDL 44 >=40 mg/dL LDL Cholesterol 50 0 - 100 mg/dL Blood Venous blood specimen / Unknown Result [facility] Historical Provider LAB BLOOD ORDERABLES Isabela l Result * Diabetes Eye Exam (12/16/2023) [facility] Diabetes: Annual Retina Eye Exam abstracted Historical Provider HEALTH MAINTENANCE Final Result from Last 3 Months or Most Recently Relevant to Health [place] [phone] [employer] [place] MED[employer] ADVANTAGE Advance Directives Documents on File Type Date Recorded Patient Tool Filer Hand Expl anation Power of Avionics Systems Technician 11/13/2024 11:38 AM HEAL TH CARE PROXY [...] currently active code status orders. Care Teams Ui Lead Developer Relationship Specialty Start Date End Date Rickie Bautista MD [address] [facility] [place] PCP - General Internal Medicine 12/29/21
--- OUTSIDE RECORDS SUMMARY | 2025-04-07 09:24 | XMS_ITS | Clinical Summary ---
Author Organization [facility] Address [address] [place] [address] Care Team Providers Care Christmas Tree Contractor Name Role Phone Rickie Bautista MD Primary Care Provider [phone] Allergies No known active allergies Medications Medication [...] age to complete this topic Care Teams Christmas Tree Contractor Relationship Specialty Start Date End Date Rickie Bautista MD [address] [place] [id number] PCP - General Hospitalist Medicine 09/18/23
== END 2025-04-07 09:28 | disposition home or self-care (01) ==
LOC: HO.HSM 09:02
PROVIDERS: PCP Internal Medicine; Visit Provider Psychiatry & Neurology Neurology
DX: G31.84 Mild cognitive impairment of uncertain or unknown etiology (principal); G62.9 Polyneuropathy, unspecified
CPT/HCPCS: 99213